=== PATIENT | male | born 2005 | race Caucasian/White ===

== ENCOUNTER 2024-10-01 16:04 | Inpatient (IN) | payer OTHER, SELFPAY ==
[2024-10-01 17:44] VITALS: BMI 36.7
[2024-10-01 18:31] LABS: Add Manual Diff / Slide Review NO; Hematocrit 43.5 % (41-53); Hemoglobin 15.0 g/dL (13.5-17.5); Lymphocytes Absolute Auto 800 /uL (1100-4500); Mean Corpuscular HGB Conc 34.5 % (30-36); Mean Corpuscular Hemoglobin 28.5 PG (26-34); Mean Corpuscular Volume 82.6 fL (80-100); Platelet Count 278 X10^3/uL (150-400)
[2024-10-01 18:50] LABS: Alanine Aminotransferase 23 IU/L (<50); Albumin 4.4 g/dL (3.5-5.0); Albumin Globulin Ratio 1.7 (1.0-2.8); Alkaline Phosphatase 68 U/L (38-126); Blood Urea Nitrogen 18 mg/dL (9-20); Calcium 9.4 mg/dL (8.4-10.2); Carbon Dioxide 25 mmol/L (22-32); Chloride 104 mmol/L (98-107); Estimated Glomerular Filt Rate > 60 mL/min (>60); Globulin 2.6 g/dL (1.7-4.1); Glucose 117 mg/dL (70-99); HEMOLYSIS < 15 (0-50); Potassium 4.4 mmol/L (3.4-5.1); Sodium 139 mmol/L (137-145); Total Protein 7.0 g/dL (6.3-8.2)
[2024-10-01] MEDS: POTASSIUM CHLORIDE 20 MEQ in DEXTROSE 5%-0.45% NS 1,000 ML 125 MEQ IV (19:03)
--- NOTE | 2024-10-01 19:12 | PM.HP.IH.1 ---
History of Present Illness History of Present Illness Chief complaint: abd px, elevated hr, sweating,n/v Narrative: The patient is a 19-year-old gentleman who began with some abdominal pain yesterday evening.escribed the pain as mild, intermittent and sharp. 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 It was still quite sharp and at its peak would cause him to bend in the position. This morning he developed nausea and vomiting. He had up to 9 episodes of emesis till about 7:00 a.m. this morning. Emesis started out as undigested food and subsequently progressed to bilious. He denies a feculent odor. He describes an inguinal hernia surgery at the age of about 4. He has had no intra-abdominal procedures. He has not had a bowel movement or passed any flatus since yesterday. He presented [place] ED and w/u included a CBC with a 17K white count. He had a CT scan done which was interpreted as a high grade obstruction with a possible internal hernia. An NG tube was placed in the emergency department. The tube was never placed on suction. He states the tube has been in for about 3 hours and he has had no more nausea or vomiting. His pain although not completely resolved is greatly reduced in intensity from yesterday evening. He is still has not passed any flatus. [facility] Social History household members: significant other and family Smoking Status: Never smoker alcohol intake: never Meds Home Medications and Allergies Home Medications ?Medication ?Instructions ?Recorded ?Confirmed ?Type No Known Home Medications 10/01/24 10/01/24 History Allergies Allergy/AdvReac Type Severity Reaction Status Date / Time No Known Drug Allergies Allergy Verified 10/01/24 18:01 Review of Systems Review of Systems Narrative: Essentially negative except for that described in the HPI. Exam Narrative Exam Narrative: The patient is a well-developed well-nourished adult male who appears to be in no acute distress. Const General: cooperative, healthy appearing, comfortable, well developed and well groomed HENMT Other: Oral mucosa and tongue appear to be dry Neck Neck: normal visual inspection, full ROM and supple Resp Auscultation: clear to auscultation bilaterally Cardio Rhythm: regular rhythm and other (Without murmurs rubs or gallops) Heart Sounds: gallop GI Palpation: soft Percussion: normal to percussion Auscultation: other (Hypoactive but high pitched bowel sounds without tinkles or rushes.) Back/Spine/Pelvis Back: normal to inspection Skin General: no rashes or lesions noted Neuro General: patient alert, patient awake and patient oriented x3 Extrem General: full ROM Objective Labs 10/01/24 18:22 10/01/24 18:22 Labs: Laboratory Results - last 24 hr 10/01/24 18:22 WBC 9.9 RBC 5.27 Hgb 15.0 Hct 43.5 MCV 82.6 MCH 28.5 MCHC 34.5 RDW 13.7 Plt Count 278 Neut % (Auto) 82.6 H Lymph % (Auto) 8.1 L [place] % (Auto) 8.7 Eos % (Auto) 0.4 L Baso % (Auto) 0.2 Neut # (Auto) 8200 H Lymph # (Auto) 800 L [place] # (Auto) 900 Eos # (Auto) 0 Baso # (Auto) 0 Sodium 139 Potassium 4.4 Chloride 104 Carbon Dioxide 25 BUN 18 Creatinine 0.75 Estimated GFR > 60 BUN/Creatinine Ratio 24.0 H Glucose 117 H Calcium 9.4 Total Bilirubin 1.2 AST 26 ALT 23 Alkaline Phosphatase 68 Total Protein 7.0 Albumin 4.4 Globulin 2.6 Albumin/Globulin Ratio 1.7 Assessment & Plan Assessment & Plan narrative: Small bowel obstruction-etiology is uncertain although there is a consideration for internal hernia. Presently the patient appears to be in no distress whatsoever. He denies any nausea vomiting since about 10:00 a.m. this morning. His white count is reduced from 17,000 down to 9.9. I am unable to review the CT done [facility] ED Plan: 1) since the NG tube has been placed the patient has had no further nausea or vomiting and the NG has never been placed on suction. We will therefore discontinue the NG tube. 2) patient is NPO at this time except for ice chips. 3) I am going to repeat the CT scan of the abdomen and pelvis with IV contrast. 4) patient will be ordered some IV narcotic pain medicine. Time-Based Coding :: [TOTAL MINUTES] spent with patient and on the chart (including review of chart, obtaining history, exam, reviewing outside data, placing orders, documenting exam and treatment plan, and counseling patient) on [DATE]. PROFEE Printed Circuit Board Pcb Draftsman Document charge(s): Yes Charge Codes Initial inpatient/observation care: [id number]
--- NOTE | 2024-10-01 19:31 | DI.CT.S_ITS ---
PROCEDURE: CT ABDOMEN PELVIS W CON INDICATIONS: Abdominal pain TECHNIQUE: After the administration of intravenous contrast, axial sections acquired from the lung bases to the pubic symphysis. Coronal and sagittal reformats were performed. For radiation dose reduction, the following was used: automated exposure control, adjustment of mA and/or kV according to patient size. COMPARISON: None. FINDINGS: Image quality: Diagnostic. Lower Chest: No significant findings. ABDOMEN: Liver: No solid mass. Gallbladder: No radiopaque gallstones or wall thickening. Biliary ducts: No biliary dilation. Pancreas: No ductal dilation. Spleen: Size is within normal limits. Adrenal Glands: No adrenal nodules. Kidneys and Ureters: No hydronephrosis. Contrast is present within the collecting system and bladder likely related to prior contrast administration. Stomach and Bowel: There are dilated fluid-filled loops small bowel greatest dimension measuring 4.4 cm. Transition point appears to be in the right lower quadrant. Peritoneum: Minimal scattered fluid. No free air. Ventral Wall: No significant ventral hernia. Abdominal Nodes: No retroperitoneal or mesenteric adenopathy by size criteria. Vessels: Aorta and inferior vena cava are normal in size. PELVIS: Pelvic Organs: Unremarkable. Bladder: No bladder wall thickening, accounting for underdistention. Pelvic Nodes: No enlarged lymph nodes. Miscellaneous: No inguinal hernias are seen. Bones: No aggressive osseous abnormality. IMPRESSION: Dilated fluid-filled loops of small bowel most consistent with partial small bowel obstruction. Dictated by: Nargis Rios M.D. on 10/01/2024 at 20:18 Approved by: Nargis Rios M.D. on 10/01/2024 at 20:20
--- NOTE | 2024-10-01 19:39 | PC.NURSE ---
Arrived at 1755 A/O NG in place. Denies discomfort at this time. IVF infusing as per MD orders. Pt oriented to room & call system. Call light w/iun reach, pt calls appropriately for needs. Continue w/plan of care
[2024-10-01 19:42] VITALS: BP 124/99; PULSE 100; RESP 19; TEMP 37.2; O2SAT 100
--- NOTE | 2024-10-01 21:23 | DI.RAD.S_ITS ---
PROCEDURE: XR GASTROGRAFIN CHALLENGE COMPARISON: [facility], CT, CT ABDOMEN PELVIS W CON, 10/01/2024, 19:42. INDICATIONS: partial bowel obstruction FINDINGS: Excreted contrast in the urinary bladder. No acute osseous abnormality. There is prominent stool in the colon. Again seen are dilated loops of small bowel mostly in the left abdomen. There is oral contrast in the stomach. IMPRESSION: Findings most consistent with small bowel obstruction. Increased stool in the colon. No significant discrepancy with the overnight preliminary interpretation. Dictated by: Flavio Bryant M.D. on 10/02/2024 at 7:20 Approved by: Flavio Bryant M.D. on 10/02/2024 at 7:23
--- NOTE | 2024-10-01 21:28 | P.PN_ITS ---
Subjective Subjective Date Patient Seen: 10/01/24 Time Patient Seen: 21:30 Interval history: Patient states she has had some mild crampy pain but not as severe as it was last night. The patient denies any nausea or vomiting. Exam Vital Signs (past 8 hours): - 10/01/24 19:42 Temperature 98.9 F Pulse Rate 100 H Respiratory Rate 19 Blood Pressure 124/99 H Pulse Oximetry 100 Oxygen Flow Rate 0 Oxygen Flow Rate 0 Narrative Exam Narrative: Abdomen is mildly distended, soft, with some mild periumbilical tenderness without guarding or rigidity. Bowel sounds are hypoactive. Objective Imaging CT scan - abdomen: My impression: There are dilated, fluid-filled proximal small bowel. There is air in the colon, although the colon is decompressed. Labs 10/01/24 18:22 10/01/24 18:22 Labs: Laboratory Results - last 24 hr 10/01/24 18:22 WBC 9.9 RBC 5.27 Hgb 15.0 Hct 43.5 MCV 82.6 MCH 28.5 MCHC 34.5 RDW 13.7 Plt Count 278 Neut % (Auto) 82.6 H Lymph % (Auto) 8.1 L [place] % (Auto) 8.7 Eos % (Auto) 0.4 L Baso % (Auto) 0.2 Neut # (Auto) 8200 H Lymph # (Auto) 800 L [place] # (Auto) 900 Eos # (Auto) 0 Baso # (Auto) 0 Sodium 139 Potassium 4.4 Chloride 104 Carbon Dioxide 25 BUN 18 Creatinine 0.75 Estimated GFR > 60 BUN/Creatinine Ratio 24.0 H Glucose 117 H Calcium 9.4 Total Bilirubin 1.2 AST 26 ALT 23 Alkaline Phosphatase 68 Total Protein 7.0 Albumin 4.4 Globulin 2.6 Albumin/Globulin Ratio 1.7 PFSH Social History household members: significant other and family Smoking Status: Never smoker alcohol intake: never Assessment & Plan Assessment & Plan narrative: Partial small bowel obstruction-plan a Gastrografin study to further evaluate the patient's obstruction. We will repeat the CBC and a BMP in the morning. Time-Based Coding :: [TOTAL MINUTES] spent with patient and on the chart (including review of chart, obtaining history, exam, reviewing outside data, placing orders, documenting exam and treatment plan, and counseling patient) on [DATE]. PROFEE Feeder Catcher Document charge(s): Yes Charge Codes Subsequent inpatient/observation care: [id number]
[2024-10-01 23:26] VITALS: BP 115/65; PULSE 106; RESP 17; TEMP 36.8; O2SAT 96
[2024-10-01] MEDS: ONDANSETRON 4 MG/2 ML INJ IV (23:40)
[2024-10-02] VITALS (13 sets, daily range): BP systolic 114–157; BP diastolic 72–96; PULSE 90–115; RESP 14–20; TEMP 36.6–37.2; O2SAT 93–98; BMI 35.9
--- NOTE | 2024-10-02 | PATH_ITS ---
[facility] Accession Number: [id number] No. of containers..01 Tissue . 01 Material submitted: . body - TERMINAL ILEUM . 01 Clinical history: . MECKEL'S DIVERTICULUM 7-17 PER LAB OP NOTE, SITE IS TERMINAL ILEUM /RR . 01 Diagnosis: TERMINAL ILEUM, SEGMENTAL RESECTION: Features consistent with Meckel's diverticulum with gastric mucosa. No dysplasia or malignancy. Resection margins are unremarkable. [facility] 10/08/2024 1454 Local . 01 Electronically signed: . Jailene Perez MD, Pathologist NPI- [id number] . 01 Gross description: . Received in formalin with two identifiers and Meckel's diverticulum, is an unoriented segment of small bowel, 7.0 cm in length by 0.3 cm in diameter, with a larger diverticula extending from the center of the specimen measuring 7.1 cm in length by 4.2 cm in diameter. The serosa is violaceous and smooth with a small amount of attached adipose. One staple line is inked blue and the opposite staple line is inked back. The lumen contains brown, semi-solid fecal material. The mucosa is veliz and velvety with a slightly nodular area at the tip of the diverticulum measuring 2.7 x 1.6 cm. No polyps or lesions are identified. The sevilla average 0.3 cm thick with no perforation identified. . Training Technician sections are submitted as follows: A1: Margins en face. A2: Nodular mucosa in the diverticulum. A3: Diverticulum. A4: Full-thickness small bowel. ([id number]) /MRV 10/06/2024 1242 Local . 01 Pathologist provided ICD-10: Q43.0 . 01 CPT . 712662 Specimen Comment: A courtesy copy of this report has been sent to [facility] Pathology Performed at: [address] [facility] [address] [place] [address], [place], [place] [id number] MD David Payton MD Phone: [phone]
[2024-10-02] MEDS: POTASSIUM CHLORIDE 20 MEQ in DEXTROSE 5%-0.45% NS 1,000 ML 125 MEQ IV ×3 (04:57→22:38)
[2024-10-02] MEDS: ONDANSETRON 4 MG/2 ML INJ IV ×3 (05:00→17:17)
--- NOTE | 2024-10-02 09:06 | DI.RAD.S_ITS ---
PROCEDURE: XR ACUTE ABDOMEN SERIES INDICATIONS: bowel obstruction TECHNIQUE: One view chest and two views of the abdomen were acquired. COMPARISON: [facility], CR, XR GASTROGRAFIN CHALLENGE, 10/02/2024, 2:56. [facility], CT, CT ABDOMEN PELVIS W CON, 10/01/2024, 19:42. FINDINGS: Surgical changes and devices: None. Chest: Lungs are clear. Heart size is normal. No pleural effusions. No pneumoperitoneum. Abdomen: Persistent dilated loops of small bowel. Air-fluid levels. No suspicious calcifications. Visualized solid organ contours appear normal. Excreted contrast in the urinary bladder. Bones: No suspicious bony lesions. IMPRESSION: Persistent small bowel obstruction. No acute cardiopulmonary abnormality. Dictated by: Flavio Bryant M.D. on 10/02/2024 at 11:58 Approved by: Flavio Bryant M.D. on 10/02/2024 at 12:01
--- NOTE | 2024-10-02 09:08 | PM.PN.IH.1 ---
Subjective Subjective Date Patient Seen: 10/02/24 Time Patient Seen: 09:08 Interval history: Patient is still with crampy abdominal pain. Denies passing any flatus. Had 2 small emesis last night. Exam Vital Signs (past 8 hours): - 10/02/24 03:12 Temperature 98.3 F Pulse Rate 90 Respiratory Rate 17 Blood Pressure 124/86 Pulse Oximetry 96 Oxygen Flow Rate 0 Oxygen Delivery Method Room Air Oxygen Flow Rate 0 Const General: cooperative and in distress Neck Neck: full ROM and supple Resp Auscultation: clear to auscultation bilaterally Cardio Rate: regular rate Rhythm: regular rhythm (No murmurs rubs or gallops) GI Other: Patient looks more distended this morning, firm, nontender with hypoactive high-pitched bowel sounds. There is some tympany to percussion Skin General: no rashes or lesions noted Neuro Other: Grossly intact Extrem General: full ROM Objective Labs 10/01/24 18:22 10/01/24 18:22 Labs: Laboratory Results - last 24 hr 10/01/24 18:22 WBC 9.9 RBC 5.27 Hgb 15.0 Hct 43.5 MCV 82.6 MCH 28.5 MCHC 34.5 RDW 13.7 Plt Count 278 Neut % (Auto) 82.6 H Lymph % (Auto) 8.1 L [place] % (Auto) 8.7 Eos % (Auto) 0.4 L Baso % (Auto) 0.2 Neut # (Auto) 8200 H Lymph # (Auto) 800 L [place] # (Auto) 900 Eos # (Auto) 0 Baso # (Auto) 0 Sodium 139 Potassium 4.4 Chloride 104 Carbon Dioxide 25 BUN 18 Creatinine 0.75 Estimated GFR > 60 BUN/Creatinine Ratio 24.0 H Glucose 117 H Calcium 9.4 Total Bilirubin 1.2 AST 26 ALT 23 Alkaline Phosphatase 68 Total Protein 7.0 Albumin 4.4 Globulin 2.6 Albumin/Globulin Ratio 1.7 PFSH Social History household members: significant other and family Smoking Status: Never smoker alcohol intake: never Assessment & Plan Assessment & Plan narrative: Partial small bowel [id number] done 4 hours after injection of Gastrografin, shows contrast in the stomach and I would not advanced. Labs are still pending from this morning. I will repeat a 3 way abdomen this morning and if there is no movement of the contrast, I will proceed with exploratory laparotomy. Time-Based Coding :: [TOTAL MINUTES] spent with patient and on the chart (including review of chart, obtaining history, exam, reviewing outside data, placing orders, documenting exam and treatment plan, and counseling patient) on [DATE]. PROFEE Petrography Teacher Document charge(s): Yes Charge Codes Subsequent inpatient/observation care: [id number]
--- NOTE | 2024-10-02 11:25 | CM.DANOTE ---
Patient is a 19 yo male who was admitted OBS Status on 10/01/24 for SBO and possible hernia. Pt has [employer] for insurance and no PCP. EMR was reviewed. Per Surgeon, pt with intractable n/v and admitted for SBO and attempting conservative tx with NGT and NPO. NGT discontinued and pt remains NPO with IV fluids and making slow progress and to have further imaging today to determine if surgical intervention needed. SW met bedside with pt and mother and explained role and they confirm they live at home in [place] and pt is very active and independent and healthy at baseline and works and drives. Pt denies any hx of hospitalization and does not use DME to ambulate. 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 Mother confirms that she can transport pt at d/c and assist as needed. Pt confirms he has no PCP and discussed possible options of [facility] or [facility] and pt agreeable with referral to [facility], no preference on male or female provider, to establish with PCP for outpt f/u after discharge. Pt and mother preference is to d/c home when stable and do not anticipate any further needs besides PCP at this time. SW sent msg to [facility] group requesting pt to be scheduled with PCP establish care appointment after discharge. Plan: SW to follow for further imaging to determine conservative tx vs surgical intervention and then advancing diet. SHRADDHA Haddad Discharge Planning/Care Management CM Discharge Assessment Start: 10/01/24 17:25 Freq: Status: Active Protocol: Document 10/02/24 11:23 BF (Rec: 10/02/24 11:25 BF [id number]) Discharge Planning Assessment Assigned Discharge SHRADDHA James Quality Control Operator DPOA/Assigned informally mother Designee Name Advance Directives? No Advance Directives No on File History Provided By Patient,Medical Record Has Patient been No admitted in last 30 days? Prior Living House Arrangements Household Members significant other,family Type of Drives own vehicle transporation used prior to admit Independent with ADL Yes 's Is patient alert and Yes oriented? Caregiver for No Another Barriers to No Discharge Discharge Plan Home Transportation Family can transport at d/c Arrangement Referrals Initiated None needed Whiteboard Updated Yes in Patient Room with name and ext. # of Electronic Drafter Review Status In Process Please Provide Date 10/02/24 Initial DC Assessment Was Performed Next Review Type Continued Stay Review Document 10/02/24 11:25 BF (Rec: 10/02/24 11:25 BF [id number]) Discharge Planning Assessment Assigned Discharge SHRADDHA James Quality Control Operator DPOA/Assigned informally mother Designee Name Advance Directives? No Advance Directives No on File History Provided By Patient,Medical Record Has Patient been No admitted in last 30 days? Prior Living House Arrangements Household Members significant other,family Type of Drives own vehicle transporation used prior to admit Independent with ADL Yes 's Is patient alert and Yes oriented? Caregiver for No Another Barriers to No Discharge Discharge Plan Home Transportation Family can transport at d/c Arrangement Referrals Initiated None needed Whiteboard Updated Yes in Patient Room with name and ext. # of Electronic Drafter Review Status In Process Please Provide Date 10/02/24 Initial DC Assessment Was Performed Next Review Type Continued Stay Review
[2024-10-02 13:49] LABS: Add Manual Diff / Slide Review NO; Hematocrit 44.9 % (41-53); Hemoglobin 15.7 g/dL (13.5-17.5); Lymphocytes Absolute Auto 1400 /uL (1100-4500); Mean Corpuscular HGB Conc 34.9 % (30-36); Mean Corpuscular Hemoglobin 28.8 PG (26-34); Mean Corpuscular Volume 82.6 fL (80-100); Platelet Count 294 X10^3/uL (150-400)
[2024-10-02 14:11] LABS: Blood Urea Nitrogen 13 mg/dL (9-20); Calcium 9.2 mg/dL (8.4-10.2); Carbon Dioxide 29 mmol/L (22-32); Chloride 101 mmol/L (98-107); Estimated Glomerular Filt Rate > 60 mL/min (>60); Glucose 118 mg/dL (70-99); HEMOLYSIS 37 (0-50); Potassium 4.6 mmol/L (3.4-5.1); Sodium 136 mmol/L (137-145)
--- NOTE | 2024-10-02 17:55 | PM.PN.IH.1 ---
Subjective Subjective Date Patient Seen: 10/02/24 Time Patient Seen: 06:18 Interval history: Patient hasnt pass gas and continues to have crampy abdominal pain. He has had 1 episode of emesis after a dose of Dilaudid. Exam Vital Signs (past 8 hours): - 10/02/24 12:00 10/02/24 16:00 Temperature 99.0 F 97.9 F Pulse Rate 98 H 102 H Respiratory Rate 16 16 Blood Pressure 114/72 124/72 Pulse Oximetry 98 98 Oxygen Flow Rate 0 0 Oxygen Delivery Method Room Air Oxygen Flow Rate 0 Narrative Exam Narrative: Patient looks like he is uncomfortable Lungs are clear to auscultation bilaterally Cardiac reveals a regular rate and rhythm without murmurs rubs or gallops Abdomen is soft, distended, nontender with high-pitched bowel sounds Objective Labs 10/02/24 13:40 10/02/24 13:40 Labs: Laboratory Results - last 24 hr 10/01/24 10/02/24 18:22 13:40 WBC 9.9 6.6 RBC 5.27 5.44 Hgb 15.0 15.7 Hct 43.5 44.9 MCV 82.6 82.6 MCH 28.5 28.8 MCHC 34.5 34.9 RDW 13.7 13.9 Plt Count 278 294 Neut % (Auto) 82.6 H 61.7 D Lymph % (Auto) 8.1 L 21.8 L [place] % (Auto) 8.7 15.1 H Eos % (Auto) 0.4 L 1.1 L Baso % (Auto) 0.2 0.3 Neut # (Auto) 8200 H 4000 Lymph # (Auto) 800 L 1400 [place] # (Auto) 900 1000 H Eos # (Auto) 0 100 Baso # (Auto) 0 0 Sodium 139 136 L Potassium 4.4 4.6 Chloride 104 101 Carbon Dioxide 25 29 BUN 18 13 Creatinine 0.75 0.88 Estimated GFR > 60 > 60 BUN/Creatinine Ratio 24.0 H 14.8 Glucose 117 H 118 H Calcium 9.4 9.2 Total Bilirubin 1.2 AST 26 ALT 23 Alkaline Phosphatase 68 Total Protein 7.0 Albumin 4.4 Globulin 2.6 Albumin/Globulin Ratio 1.7 PFSH Social History household members: significant other and family Smoking Status: Never smoker alcohol intake: never Assessment & Plan Assessment and plan (1) Small bowel obstruction: Status: Acute Plan The patient has an opened up despite Gastrografin study. Plan exploratory laparotomy with possible bowel resection. Indications, planned procedure, and inherent risks were explained to the patient. He appears to understand and agrees to proceed as outlined. Time-Based Coding :: [TOTAL MINUTES] spent with patient and on the chart (including review of chart, obtaining history, exam, reviewing outside data, placing orders, documenting exam and treatment plan, and counseling patient) on [DATE]. PROFEE College Service Officer Document charge(s): Yes Charge Codes Subsequent inpatient/observation care: [id number]
--- NOTE | 2024-10-02 18:30 | SUR.PREOP ---
Bedside handoff report from BRUCE Kirkpatrick. Pt identifiers confirmed. Carlie Grissom's phone number in chart for Dr. Burgess. Silver ring left in room 208 w/ carlie. LAC 20g IV infusing D5 1/2 NS w K. Paused at 1830. Pt transferred to pre-op via hospital bed. Side rails up, bed low.
[2024-10-02] MEDS: LACTATED RINGERS 1,000 ML 42 ML IV (19:03)
[2024-10-02] MEDS: PIPERACILLIN/TAZO 3.375 GM in SODIUM CHLORIDE 0.9% 100 ML IV (19:29)
--- NOTE | 2024-10-02 19:48 | SUR.OPER ---
Supine on padded OR bed, head on pillow, arms secured on padded arm boards at <90 degrees abduction, legs uncrossed, safety belt at thigh, tape over blanket over lower legs.
[2024-10-02] MEDS: ACETAMINOPHEN IV 1,000 MG/100 ML VIAL 400 MG IV (19:50)
[2024-10-02] MEDS: BUPIVACAINE 0.25% W/ EPI 30 ML VIAL 60 ML INJ (20:10)
--- NOTE | 2024-10-02 21:53 | PM.OP.1 ---
Operative Date/Time/Diagnoses Date of procedure: 10/02/24 Time of procedure: 19:45 Pre-op diagnosis: Small bowel obstruction Post-op diagnosis: other Procedure & Clinicians Procedure: Exploratory laparotomy with small-bowel resection. Same procedure(s) as scheduled: Yes Indications: Patient is a 19-year-old gentleman who presented last night with crampy abdominal pain and some nausea and vomiting. Workup revealed the patient have a partial small bowel obstruction. Attempted a Gastrografin study failed and the patient continued to have crampy abdominal pain and no flatus and the decision was made to perform an exploratory laparotomy. Surgeon: ED* *Temp Click Yes if Unassisted: Yes Anesthesia Type: General Operative Notes Findings: The patient had significant small bowel distention in the proximal bowel down to the area of the terminal ileum which was decompressed. At the site of the terminal ileum the patient had a single adhesion that went from the tip of a rather large Meckel's diverticulum to the mesentery of another loop of bowel. Patient had a large amount of serous ascites. Specimen(s): other (Patient a section of small bowel with the Meckel's diverticulum sent.) Applied: none Estimated Blood Loss (mL): 20 Procedure in detail: After appropriate patient identification, the patient was placed on the procedure table in a supine position. Upon achievement adequate general anesthesia, the abdomen was prepped with ChloraPrep and draped in a sterile manner. After completion of the time-out, a periumbilical incision was fashioned using a 10 blade knife. The incision was deepened through dermis and subcutaneous tissue to the linea Alba. The linea alba and the peritoneum were opened under direct vision throughout the entire incision. Patient had a copious amount of ascites which was aspirated. The patient was then eviscerated and the small bowel was followed from ligament of Treitz to the terminal ileum where we found a single adhesion arising from a Meckel's diverticulum on to another loop of bowel. This is the point of obstruction and the terminal ileum was decompressed after this point. This adhesion was lysed using Metzenbaum scissors. The bowel was then run from ligament of Treitz down to ileocecal valve and there was no cyanotic or necrotic bowel. The patient had a rather large Meckel's diverticulum. The decision was made to excise this. Both proximal and distal to the Meckel's diverticulum the mesentery was dissected from the small bowel using a tonsil clamp. FRANNY 55 staplers were passed both proximally and distally and fired. The mesentery was then taken down sequentially using the LigaSure. The bowel was then placed side by side and anchored into place using 3-0 silk sutures. A posterior row of interrupted Lemberts was fashioned using 3-0 silk suture. Moist laps were placed on either side of the proposed anastomosis. Enterotomies were fashioned both in the proximal bowel and the distal bowel using Bovie electrocautery. There was a significant amount of drainage of small bowel effluent which was caught on the previously placed moistened laps. The bowel segments were aspirated using pool suckers. GI 55 was placed through both enterotomies and fired. The resulting enterotomy was then closed using Allis clamps and a TA 30? was passed underneath the Allis clamps and fired. Attention was then directed to the mesentery and while attempting to close the mesentery with a 4-0 on dyed Monocryl, there appeared to be a leak in the suture line. The staple line was then inverted using interrupted Lemberts of 3-0 silk suture. The site was carefully inspected no further leaks were identified. The mesentery was then closed using a 4-0 dyed Monocryl and fashion. The abdomen is then copiously irrigated with sterile saline. The small bowel was returned to its normal anatomic position. The linea alba was reapproximated using 1. PDS in a simple running fashion. The skin on either side of the incision was anesthetized using 0.25% Marcaine with epinephrine. Gatzke were then placed to reapproximate the skin. A sterile dressing was placed and the procedure was terminated. The patient was transferred to the recovery room in good condition having sustained approximately 20 cc blood loss. Complications: none Post-operative Condition: stable Disposition: PACU
[2024-10-03] VITALS (16 sets, daily range): BP systolic 106–147; BP diastolic 57–91; PULSE 101–139; RESP 16–25; TEMP 36.7–37.5; O2SAT 93–99
[2024-10-03] MEDS: KETOROLAC 30 MG/ML VIAL 15 MG IV ×4 (02:16→19:48)
[2024-10-03] MEDS: ACETAMINOPHEN IV 1,000 MG/100 ML VIAL 400 MG IV ×4 (03:45→19:57)
[2024-10-03 04:36] LABS: Add Manual Diff / Slide Review NO; Hematocrit 43.0 % (41-53); Hemoglobin 15.1 g/dL (13.5-17.5); Lymphocytes Absolute Auto 400 /uL (1100-4500); Mean Corpuscular HGB Conc 35.1 % (30-36); Mean Corpuscular Hemoglobin 29.1 PG (26-34); Mean Corpuscular Volume 82.8 fL (80-100); Platelet Count 273 X10^3/uL (150-400)
--- NOTE | 2024-10-03 04:41 | PC.NURSE ---
Addendum entered by Noa Thompson R.N. 10/03/24 04:49: 10/02/24 22:30- Pt back to ACU from PACU, Original Note: 04:00-Pt sustaining elevated HR between 110's-120's. Notified Dr. Burgess and he stated keep an eye on it.
[2024-10-03 04:47] LABS: Blood Urea Nitrogen 13 mg/dL (9-20); Calcium 8.7 mg/dL (8.4-10.2); Carbon Dioxide 23 mmol/L (22-32); Chloride 102 mmol/L (98-107); Estimated Glomerular Filt Rate > 60 mL/min (>60); Glucose 151 mg/dL (70-99); HEMOLYSIS < 15 (0-50); Potassium 4.8 mmol/L (3.4-5.1); Sodium 132 mmol/L (137-145)
[2024-10-03] MEDS: POTASSIUM CHLORIDE 20 MEQ in DEXTROSE 5%-0.45% NS 1,000 ML 125 MEQ IV (07:01)
[2024-10-03] MEDS: HYDROMORPHONE 2 MG INJ IV ×7 (07:02→21:51)
--- NOTE | 2024-10-03 09:25 | EKG_ITS ---
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
[2024-10-03] MEDS: SODIUM CHLORIDE 0.9% 1,000 ML 1000 ML IV ×2 (10:10→17:45)
--- NOTE | 2024-10-03 10:22 | P.PN_ITS ---
Subjective Subjective Date Patient Seen: 10/03/24 Time Patient Seen: 10:22 Interval history: The patient is 1st day postop from a bicoronal laparotomy with small-bowel resection secondary to a small-bowel obstruction caused by a Meckel's diverticulum. Presently we are having some difficulty with pain management. His dosing was increased this morning with improvement in his pain presently. Patient stated he urinated approximately 3 times last night. He denies any nausea or vomiting. Exam Vital Signs (past 8 hours): - 10/03/24 03:27 10/03/24 06:40 10/03/24 09:03 Temperature 98.7 F 99.5 F 98.2 F Pulse Rate 117 H 139 H 136 H Respiratory Rate 19 18 22 Blood Pressure 119/73 134/81 118/90 Pulse Oximetry 96 96 94 Oxygen Flow Rate 0 0 0 Oxygen Delivery Method Room Air Oxygen Flow Rate 0 Narrative Exam Narrative: Lungs are clear to auscultation bilaterally with poor inspiratory effort. Cardiac reveals a rapid rate and regular rhythm Abdomen is soft but diffusely tender without guarding or rigidity. Bowel sounds are hypoactive and distant There is some serosanguineous drainage on the dressing this morning. Objective ECG Impression: The EKG shows sinus tach Labs 10/02/24 13:40 10/02/24 13:40 Labs: Laboratory Results - last 24 hr 10/02/24 10/02/24 04:11 13:40 WBC 2.8 L D 6.6 D RBC 5.19 5.44 Hgb 15.1 15.7 Hct 43.0 44.9 MCV 82.8 82.6 MCH 29.1 28.8 MCHC 35.1 34.9 RDW 13.5 13.9 Plt Count 273 294 Neut % (Auto) 75.2 H 61.7 Lymph % (Auto) 13.5 L 21.8 L [place] % (Auto) 10.9 15.1 H Eos % (Auto) 0.2 L 1.1 L Baso % (Auto) 0.2 0.3 Neut # (Auto) 2100 4000 Lymph # (Auto) 400 L 1400 [place] # (Auto) 300 1000 H Eos # (Auto) 0 100 Baso # (Auto) 0 0 Sodium 132 L 136 L Potassium 4.8 4.6 Chloride 102 101 Carbon Dioxide 23 29 BUN 13 13 Creatinine 0.89 0.88 Estimated GFR > 60 > 60 BUN/Creatinine Ratio 14.6 14.8 Glucose 151 H 118 H Calcium 8.7 9.2 PFSH Social History household members: significant other and family Smoking Status: Never smoker alcohol intake: never Assessment & Plan Assessment and plan (1) Meckel's diverticulum: Status: Acute (2) Small bowel obstruction: Status: Acute (3) Sinus tachycardia: Status: Acute Plan Given the sinus tachycardia we made some adjustments on his pain management. We will also give him a 1 L bolus despite the fact that he had approximately 45 cc/hour urine throughout the night. We will ambulate the patient today and encouraged vigorous pulmonary toilet. Time-Based Coding :: [TOTAL MINUTES] spent with patient and on the chart (including review of chart, obtaining history, exam, reviewing outside data, placing orders, documenting exam and treatment plan, and counseling patient) on [DATE]. PROFEE Director Executive Communications Document charge(s): Yes
[2024-10-03 10:50] LABS: Add Manual Diff / Slide Review NO; Hematocrit 41.1 % (41-53); Hemoglobin 14.3 g/dL (13.5-17.5); Lymphocytes Absolute Auto 400 /uL (1100-4500); Mean Corpuscular HGB Conc 34.8 % (30-36); Mean Corpuscular Hemoglobin 28.8 PG (26-34); Mean Corpuscular Volume 82.7 fL (80-100); Platelet Count 259 X10^3/uL (150-400)
[2024-10-03 10:58] LABS: Blood Urea Nitrogen 17 mg/dL (9-20); Calcium 8.1 mg/dL (8.4-10.2); Carbon Dioxide 26 mmol/L (22-32); Chloride 100 mmol/L (98-107); Estimated Glomerular Filt Rate > 60 mL/min (>60); Glucose 142 mg/dL (70-99); HEMOLYSIS < 15 (0-50); Potassium 5.0 mmol/L (3.4-5.1); Sodium 132 mmol/L (137-145)
[2024-10-03] MEDS: SODIUM CHLORIDE 0.9% 1,000 ML 125 ML IV (11:43)
--- NOTE | 2024-10-03 13:16 | CM.DPC ---
DCP COnt: Per Surgeon, pt's conservative tx was not adequate and pt taken to OR yesterday evening 10/02 for Ex Lap and tolerated procedure well but some pain management issues and tachy and not yet stable for discharge today. Will encourage ambulation and slowly advance diet. SHRADDHA Haddad
--- NOTE | 2024-10-03 13:47 | PC.NURSE ---
Addendum entered by Lian Hudson R.N. 10/03/24 18:56: Dr. Burgess here new orders rec'd, started 2nd bolus, medicated pt with 2mg dilaudid ivp, pt stood at bs and walked in place o2sats of ra 91, HR increase to 150's. spoke with charge and believe pt will have closer watch in ICU overnight. transfered to room 230. Original Note: this Am 0830 Pt appears distressed HR tachy up into the 160's, shallow breaths and clammy, complains of abd pain. tele placed and EKG done, medicated with Dilaudid 2mg IVP, tylenol IV, toradol IVP, placed o2 2lnc sats 91% increased to 96% DR. Burgess notified of pt changes and here at 0950 bedside to see pt, 1 liter bolus normal saline given. then changed rate and solution. 1400 pt resting heartrate down to 120' nst. taking ice chips, voiding without difficulty. 1400
[2024-10-03 16:26] LABS: Blood Urea Nitrogen 20 mg/dL (9-20); Calcium 8.2 mg/dL (8.4-10.2); Carbon Dioxide 23 mmol/L (22-32); Chloride 101 mmol/L (98-107); Estimated Glomerular Filt Rate > 60 mL/min (>60); Glucose 124 mg/dL (70-99); HEMOLYSIS < 15 (0-50); Potassium 4.9 mmol/L (3.4-5.1); Sodium 132 mmol/L (137-145)
--- NOTE | 2024-10-03 17:05 | P.PN_ITS ---
Subjective Subjective Date Patient Seen: 10/03/24 Time Patient Seen: 15:03 Exam Vital Signs (past 8 hours): - 10/03/24 12:44 Temperature 98.4 F Pulse Rate 126 H Respiratory Rate 20 Blood Pressure 106/57 L Pulse Oximetry 99 Oxygen Flow Rate 1 Oxygen Delivery Method Nasal Cannula Oxygen Flow Rate 1 Narrative Exam Narrative: Patient is still tachycardic at 1:26 a.m.. He urinated once at about 1:00 p.m. proximally a 350 cc. Objective Labs 10/03/24 10:40 10/03/24 15:58 Labs: Laboratory Results - last 24 hr 10/02/24 10/02/24 10/03/24 04:11 13:40 10:40 WBC 2.8 L D 6.6 D 3.2 L D RBC 5.19 4.97 Hgb 15.1 14.3 Hct 43.0 41.1 MCV 82.8 82.6 82.7 MCH 29.1 28.8 MCHC 35.1 34.9 34.8 RDW 13.5 13.7 Plt Count 273 259 Neut % (Auto) 75.2 H 61.7 72.3 Lymph % (Auto) 13.5 L 21.8 L 11.3 L [place] % (Auto) 10.9 15.3 H Eos % (Auto) 0.2 L 0.7 L Baso % (Auto) 0.2 0.4 Neut # (Auto) 2100 2300 Lymph # (Auto) 400 L 400 L [place] # (Auto) 300 500 Eos # (Auto) 0 0 Baso # (Auto) 0 0 Sodium 132 L 136 L 132 L Potassium 4.8 4.6 5.0 Chloride 102 100 Carbon Dioxide 23 26 BUN 13 17 Creatinine 0.89 1.27 H Estimated GFR > 60 > 60 BUN/Creatinine Ratio 14.6 13.4 Glucose 151 H 118 H 142 H Calcium 8.7 8.1 L 10/03/24 15:58 WBC RBC Hgb Hct MCV MCH MCHC RDW Plt Count Neut % (Auto) Lymph % (Auto) [place] % (Auto) Eos % (Auto) Baso % (Auto) Neut # (Auto) Lymph # (Auto) [place] # (Auto) Eos # (Auto) Baso # (Auto) Sodium 132 L Potassium 4.9 Chloride 101 Carbon Dioxide 23 BUN 20 Creatinine 1.21 Estimated GFR > 60 BUN/Creatinine Ratio 16.5 Glucose 124 H Calcium 8.2 L PFSH Social History household members: significant other and family Smoking Status: Never smoker alcohol intake: never Assessment & Plan Assessment and plan (1) Sinus tachycardia: Status: Acute (2) Meckel's diverticulum: Status: Acute (3) Small bowel obstruction: Status: Acute (4) Hyperkalemia: Status: Acute Plan We will continue to run his IV fluids at 150 cc/hour and we will give him another normal saline bolus. We will repeat the CBC and BNP tomorrow morning. Time-Based Coding :: [TOTAL MINUTES] spent with patient and on the chart (including review of chart, obtaining history, exam, reviewing outside data, placing orders, documenting exam and treatment plan, and counseling patient) on [DATE]. PROFEE Director Of Culture Document charge(s): Yes
[2024-10-03] MEDS: SODIUM CHLORIDE 0.9% 1,000 ML 150 ML IV (19:50)
[2024-10-03 20:10] LABS: MRSA (Nasal) PCR NOT DETECTED (Not Detect)
[2024-10-04] VITALS (51 sets, daily range): BP systolic 107–177; BP diastolic 63–91; PULSE 116–143; RESP 11–30; TEMP 36.6–37.2; O2SAT 91–100
[2024-10-04] MEDS: HYDROMORPHONE 2 MG INJ IV ×6 (00:08→09:56)
[2024-10-04] MEDS: ONDANSETRON 4 MG/2 ML INJ IV ×5 (00:14→22:44)
[2024-10-04] MEDS: KETOROLAC 30 MG/ML VIAL 15 MG IV ×4 (01:54→20:05)
[2024-10-04] MEDS: ACETAMINOPHEN IV 1,000 MG/100 ML VIAL 400 MG IV ×3 (04:01→20:06)
--- NOTE | 2024-10-04 06:31 | PC.NURSE ---
Addendum entered by Adrianna Medina R.N. 10/04/24 06:58: 0630-Patient had another 300ml thin dark brown emesis, no odor. Original Note: Geology Scientist Summary-Patient drowsy, oriented x3. 7/10 abdominal pain controlled with 2mg IV Dilaudid Q2h prn. IV Zofran given for nausea, had 100ml dark green/brown emesis at 0500. Unable to void overnight until 0500, voided 500ml tea colored urine. Was bladder scanned at 2230, only had 75ml at that time. Dr. Burgess called, went to voice mail, ML to phone ICU. ST 120-140s with activity. Afebrile. Placed on 2L NC, desats <90% when asleep. PAIMIUT elevated. Midline drsg D/I with moderate drainage. Bowel sounds very hypoactive. S.O. in room overnight.
[2024-10-04 08:46] LABS: Blood Urea Nitrogen 26 mg/dL (9-20); Calcium 8.7 mg/dL (8.4-10.2); Carbon Dioxide 21 mmol/L (22-32); Chloride 100 mmol/L (98-107); Estimated Glomerular Filt Rate > 60 mL/min (>60); Glucose 141 mg/dL (70-99); HEMOLYSIS < 15 (0-50); Potassium 4.5 mmol/L (3.4-5.1); Sodium 132 mmol/L (137-145)
[2024-10-04] MEDS: SODIUM CHLORIDE 0.9% 1,000 ML 150 ML IV ×2 (08:50→14:35)
[2024-10-04 08:54] LABS: Hematocrit 40.7 % (41-53); Hemoglobin 14.0 g/dL (13.5-17.5); Mean Corpuscular HGB Conc 34.3 % (30-36); Mean Corpuscular Hemoglobin 28.3 PG (26-34); Mean Corpuscular Volume 82.4 fL (80-100); Platelet Count 265 X10^3/uL (150-400)
[2024-10-04 08:58] LABS: Add Manual Diff / Slide Review YES
[2024-10-04 09:29] LABS: Band Neutrophils Percent 41.0 % (3-7); Eosinophils Percent Manual 1.0 % (2-4); Lymphocytes Percent Manual 19.0 % (25-45); Metamyelocytes Percent 1.0 % (-0); Monocytes Percent Manual 24.0 % (2-11); Neutrophils Absolute Manual 2585 /uL (3000-5900); Segmented Neutrophils Percent 14.0 % (38-70); Total Cells Counted 100
[2024-10-04 09:34] LABS: RBC Morphology Normal Morphology
[2024-10-04 09:35] LABS: Toxic Granulation Present; Toxic Vacuolation Present
--- NOTE | 2024-10-04 09:36 | DI.CT.S_ITS ---
PROCEDURE: CT ANGIO CHEST PE PROTOCOL INDICATIONS: Tachycardia post-op TECHNIQUE: After the administration of intravenous contrast, 2 mm thick sections acquired from the pulmonary apices to the posterior costophrenic angles. 3-dimensional maximum intensity projection (MIP) coronal and sagittal reformats were then acquired through the thorax. For radiation dose reduction, the following was used: automated exposure control, adjustment of mA and/or kV according to patient size. COMPARISON: [facility], CT, CT ABDOMEN PELVIS W CON, 10/01/2024, 19:42. FINDINGS: Image quality: Mild respiratory motion. Poor opacification of the pulmonary arteries. Some diagnostic information is obtained. Pulmonary arteries: There is suboptimal opacification of the pulmonary arteries on initial scanning and repeat scanning was performed, which also demonstrates suboptimal contrast opacification likely related to patient respiration. Within these limits, no large central pulmonary embolus is seen Lower Neck: No enlarged lymph nodes. Thyroid: No thyroid nodules which require sonographic follow up, per consensus guidelines. Axillae: No enlarged lymph nodes. Chest Wall: Unremarkable. Bones: Unremarkable. Lungs and Pleura: Trace bilateral pleural effusions. No pneumothorax. Subsegmental atelectasis is seen in the lungs bilaterally.1 no definite dense airspace consolidation. o pneumothorax or pleural effusions. No consolidation or suspicious nodules. Heart: Heart size is normal. No pericardial effusion. Thoracic Vessels: No aortic aneurysm. Mediastinum and Keren: No enlarged lymph nodes. Esophagus: Esophagus is filled with fluid. There is mild distal esophageal wall thickening that may indicate esophagitis. No significant hiatal hernia. Upper Abdomen: Distended stomach. Multiple distended small bowel loops are seen in the upper abdomen. Small volume of fluid is seen in the upper abdomen. IMPRESSION: 1. Poor opacification of the pulmonary arteries despite repeat scanning. Within these limits, no large central pulmonary embolus is seen although more peripheral emboli could be missed. 2. Small bilateral pleural effusions with bibasilar atelectasis. 3. Fluid-filled esophagus with mild circumferential esophageal wall thickening that could indicate esophagitis. 4. Distended fluid-filled appearance of the stomach and included small bowel compatible with ileus or small-bowel obstruction. 5. Small volume of upper abdominal ascites. Approved by: Cody Corral M.D. on 10/04/2024 at 10:58
--- NOTE | 2024-10-04 09:37 | PM.PN.IH.1 ---
Subjective Subjective Date Patient Seen: 10/04/24 Time Patient Seen: 09:37 Interval history: POD#2 Patient continues to complain of incisional and abdominal pain. Patient is nauseated and has vomited x1. He has not passed any flatus. Exam Vital Signs (past 8 hours): - 10/04/24 02:00 10/04/24 02:07 10/04/24 02:07 Pulse Rate 131 H 125 H Respiratory Rate 28 H 24 Blood Pressure 146/91 H Pulse Oximetry 91 93 Oxygen Delivery Method 10/04/24 02:30 10/04/24 03:00 10/04/24 03:00 Pulse Rate 123 H 122 H Respiratory Rate 19 20 Blood Pressure 151/89 H Pulse Oximetry 95 96 Oxygen Delivery Method 10/04/24 03:30 10/04/24 04:00 10/04/24 04:00 Pulse Rate 123 H 124 H Respiratory Rate 23 24 Blood Pressure 155/90 H Pulse Oximetry 96 96 Oxygen Delivery Method 10/04/24 04:30 10/04/24 05:00 10/04/24 05:00 Pulse Rate 124 H 125 H Respiratory Rate 21 20 Blood Pressure 177/78 H Pulse Oximetry 95 94 Oxygen Delivery Method 10/04/24 05:30 10/04/24 06:00 10/04/24 06:00 Pulse Rate 129 H 120 H Respiratory Rate 22 15 Blood Pressure 142/86 H Pulse Oximetry 94 95 Oxygen Delivery Method 10/04/24 06:30 10/04/24 07:00 10/04/24 07:00 Pulse Rate 125 H 133 H Respiratory Rate 11 L 22 Blood Pressure Pulse Oximetry 94 95 Oxygen Delivery Method Room Air 10/04/24 07:00 10/04/24 07:30 10/04/24 08:00 Pulse Rate 127 H 139 H Respiratory Rate 23 26 H Blood Pressure 139/87 Pulse Oximetry 94 94 Oxygen Delivery Method 10/04/24 08:30 10/04/24 09:00 Pulse Rate 124 H 123 H Respiratory Rate 20 21 Blood Pressure 155/76 H Pulse Oximetry 94 96 Oxygen Delivery Method Oxygen Delivery Method Room Air Oxygen Flow Rate 0 Narrative Exam Narrative: Lungs are clear to auscultation bilaterally Cardiac reveals a rapid rate regular rhythm Abdomen is distended, soft, nontender, with absent bowel sounds. There are stable serosanguineous drainage on the dressing. There is no lower extremity edema. Objective Labs 10/04/24 08:25 10/04/24 08:25 Labs: Laboratory Results - last 24 hr 10/03/24 10/03/24 10/03/24 10:40 15:58 18:35 WBC 3.2 L D RBC 4.97 Hgb 14.3 Hct 41.1 MCV 82.7 MCH 28.8 MCHC 34.8 RDW 13.7 Plt Count 259 Neut % (Auto) 72.3 Lymph % (Auto) 11.3 L [place] % (Auto) 15.3 H Eos % (Auto) 0.7 L Baso % (Auto) 0.4 Neut # (Auto) 2300 Lymph # (Auto) 400 L [place] # (Auto) 500 Eos # (Auto) 0 Baso # (Auto) 0 Sodium 132 L 132 L Potassium 5.0 4.9 Chloride 100 101 Carbon Dioxide 26 23 BUN 17 20 Creatinine 1.27 H 1.21 Estimated GFR > 60 > 60 BUN/Creatinine Ratio 13.4 16.5 Glucose 142 H 124 H Calcium 8.1 L 8.2 L Nasal Screen MRSA (PCR) Not detected 10/04/24 08:25 WBC 4.7 RBC 4.95 Hgb 14.0 Hct 40.7 L MCV 82.4 MCH 28.3 MCHC 34.3 RDW 13.5 Plt Count 265 Neut % (Auto) Not Reportable Lymph % (Auto) Not Reportable [place] % (Auto) Not Reportable Eos % (Auto) Not Reportable Baso % (Auto) Not Reportable Neut # (Auto) Lymph # (Auto) Not Reportable [place] # (Auto) Not Reportable Eos # (Auto) Baso # (Auto) Not Reportable Sodium 132 L Potassium 4.5 Chloride 100 Carbon Dioxide 21 L BUN 26 H Creatinine 0.85 Estimated GFR > 60 BUN/Creatinine Ratio 30.6 H Glucose 141 H Calcium 8.7 Nasal Screen MRSA (PCR) [facility] Social History household members: significant other and family Smoking Status: Never smoker alcohol intake: never Assessment & Plan Assessment and plan (1) Hyperkalemia: Status: Acute (2) Sinus tachycardia: Status: Acute (3) Meckel's diverticulum: Status: Acute (4) Small bowel obstruction: Status: Acute Plan Patient has persistent tachycardia is concerning. He appears to be in excess of 3 L up. Have discussed the patient with the hospitalist, whom I have asked to see the patient in consultation. Per our discussion, I will order a CT angio of the lungs. Time-Based Coding :: [TOTAL MINUTES] spent with patient and on the chart (including review of chart, obtaining history, exam, reviewing outside data, placing orders, documenting exam and treatment plan, and counseling patient) on [DATE]. PROFEE Director Construction Services Document charge(s): Yes
[2024-10-04 10:19] LABS: Lactate (Lactic Acid) 1.7 mmol/L (0.7-2.1)
--- NOTE | 2024-10-04 11:04 | DI.RAD.S_ITS ---
PROCEDURE: XR ABDOMEN 1V INDICATIONS: NG placement TECHNIQUE: One view of the abdomen acquired. COMPARISON: None. FINDINGS: Surgical changes and devices: Gastric tube tip and side port project over the stomach. Laparotomy defect. Bowel: Bowel gas pattern is normal. Soft tissues: No suspicious abdominal calcifications. Visualized solid organ contours appear normal in size. Bones: No suspicious bony lesions. IMPRESSION: Gastric tube tip and side port project over the stomach. Dictated by: Juice Hernández M.D. on 10/04/2024 at 12:49 Approved by: Juice Hernández M.D. on 10/04/2024 at 12:50
[2024-10-04] MEDS: fentaNYL 1,000 MCG in DEXTROSE 5% IN WATER 230 ML 23.417 MCG IV (11:32)
[2024-10-04] MEDS: SODIUM CHLORIDE 0.9% 1,000 ML 1000 ML IV ×2 (11:37→14:34)
--- NOTE | 2024-10-04 12:30 | DIET.CONS ---
Dietary Consultation Note Admission Date: 10/02/2024 21:26 Assessment: 19 y M admitted for SBO, post-op exploratory laparotomy with small-bowel resection. Dietitian screened for MNA score. Pt is NPO day 4. Nauseated and episode of emesis today. Per surgery note, further scans today. Met with pt and family at bedside who confirm abd pain started this past 09/30. Before then, denies changes in appetite or PO intake, eating 2-3 meals and snacks as needed. Reports weight has been stable in past year. Ht: 193.04 cm Wt: 133.81 kg BMI: 36.7 UBW: no weight hx in chart, pt denies any recent weight loss. Last BM: 09/30/24 (10/02/24 19:05) MNA: 9 Neri Score: 20 Diet: 10/02/24 21:30 NPO Diet Diet Modifications: NPO Type: NPO except for Ice Chips Nutrition Percent Meal Consumed 0% 10/04/24 11:00 Labs: RBC 4.95 X10^6/uL (4.5-5.9) 10/04/24 08:25 Hgb 14.0 g/dL (13.5-17.5) 10/04/24 08:25 Hct 40.7 % (41-53) L 10/04/24 08:25 Creatinine 0.85 mg/dL (0.66-1.25) 10/04/24 08:25 Lactate 1.7 mmol/L (0.7-2.1) 10/04/24 10:00 Nutrition Diagnosis: Inadequate oral intake r/t altered GI function/structure aeb NPO day 4 Interventions: -Surgery to advance diet when medically ready Monitoring/Evaluations: days NPO, plan of care Electronically Signed by: Rochelle Grayson 10/04/24 12:30 Clinical Dietitian [address] [address]
--- NOTE | 2024-10-04 13:36 | CM.DPC ---
DCP Cont: Per Surgeon, pt with ongoing pain and distension in his abdomen and emesis and had to insert NGT again and a few liters of bile taken off and pt feeling somewhat better but not medically stable to discharge. Per TCM team, able to schedule pt with provider Kaya Sexton at [facility] on 10/27/24 at 1030. SW met bedside with pt and mother and updated on scheduled establish with PCP appointment and they are very appreciative and provided them with the information. SHRADDHA Haddad
[2024-10-04] MEDS: PIPERACILLIN/TAZO 4.5 GM in SODIUM CHLORIDE 0.9% 100 ML IV ×2 (14:34→22:00)
--- NOTE | 2024-10-04 15:42 | P.CONS_ITS ---
History of Present Illness Consult details Date Patient Seen: 10/04/24 Chief complaint: abd px, elevated hr, sweating,n/v Narrative: Chief complaint: Abdominal pain and small-bowel obstruction secondary to Meckel's diverticulum History of present illness: 19-year-old male who had abdominal pain on the 30 of September came into the emergency room the next morning findings at the time significant for a high- grade small-bowel obstruction. In the emergency department symptoms of emesis will relieved with NGT without suctioned NG tube was removed and patient was observed. Decision was made within 24 hours for operative intervention findings indicated for Meckel's diverticulum. Postoperative course characterized by ileus. Consultation for internal medicine consultation placed today. Patient reports abdominal discomfort is NPO Patient demonstrates signs of tachycardia diaphoresis findings of CT of the chest and upper parts of the abdomen demonstrated significant volume of bile in the stomach that was drained by NG tube. Laboratory evaluation demonstrates white count of 4.7 with 14% neutrophils and 41% band forms with toxic granulation and vacuolization. Review of systems: Patient does not report chest pain or shortness a breath No rigors or diaphoresis No urinary symptoms No delirium Physical exam: Large frame well-developed adult male alert and cogent answers questions appropriately HEENT unremarkable Lungs clear from apices to bases Heart rate and rhythm regular tachycardic and heart is hyperdynamic Abdomen is distended but not firm I could not appreciate bowel sounds no peritoneal signs and no rigidity or guarding Extremities no cyanosis clubbing edema neuro is nonfocal Objective: For laboratory and imaging please see the bottom of the note Assessment and plan: Signs and symptoms of systemic inflammatory response syndrome suspect small bowel injury due to obstruction. Suspect translocation of endotoxin Bettencourt compromised mucosal barrier leading to fever insensible fluid loss bandemia and other findings on peripheral smear. * Blood cultures obtained * Empiric Zosyn * Vigorous hydration goal urine output of 70-100 cc an hour * Serial lactic acid and CBC and chemistries * Accurate urine output measurement if this is problematic indwelling catheter will be recommended Family history of factor 5 Leiden in father * Testing here * Risks benefits of anticoagulation for DVT prophylaxis at this time probably favors not prophylaxis because of risk of perioperative hemorrhage as the endpoint perioperative hemorrhage versus PE, PEs more survivable 75 minutes of time was required in the evaluation of this consultation Meds Home Medications and Allergies Home Medications ?Medication ?Instructions ?Recorded ?Confirmed ?Type No Known Home Medications 10/01/2409/21 History Allergies Allergy/AdvReac Type Severity Reaction Status Date / Time No Known Drug Allergies Allergy Verified 10/02/24 19:02 Exam Vital Signs (past 8 hours): - 10/04/24 08:00 10/04/24 08:30 10/04/24 09:00 Pulse Rate 139 H 124 H 123 H Respiratory Rate 26 H 20 21 Blood Pressure 155/76 H Pulse Oximetry 94 94 96 Oxygen Delivery Method 10/04/24 09:17 10/04/24 09:17 10/04/24 09:30 Pulse Rate 131 H 131 H Respiratory Rate 20 20 Blood Pressure 155/76 H Pulse Oximetry 94 94 Oxygen Delivery Method 10/04/24 10:00 10/04/24 11:00 10/04/24 11:25 Pulse Rate 135 H 143 H Respiratory Rate 30 H Blood Pressure 155/76 H 148/72 H Pulse Oximetry 93 92 Oxygen Delivery Method 10/04/24 11:25 10/04/24 11:30 10/04/24 12:00 Pulse Rate 131 H 131 H 124 H Respiratory Rate Blood Pressure Pulse Oximetry 93 99 97 Oxygen Delivery Method 10/04/24 12:00 10/04/24 12:09 10/04/24 12:30 Pulse Rate 131 H Respiratory Rate Blood Pressure 136/71 Pulse Oximetry 100 Oxygen Delivery Method Room Air 10/04/24 13:00 10/04/24 13:00 10/04/24 13:30 Pulse Rate 137 H 133 H Respiratory Rate Blood Pressure 138/82 Pulse Oximetry 94 94 Oxygen Delivery Method 10/04/24 14:00 10/04/24 14:00 10/04/24 14:30 Pulse Rate 134 H 132 H Respiratory Rate Blood Pressure 148/78 H Pulse Oximetry 92 92 Oxygen Delivery Method 10/04/24 15:00 10/04/24 15:00 Pulse Rate 128 H Respiratory Rate Blood Pressure 123/64 Pulse Oximetry 93 Oxygen Delivery Method Oxygen Delivery Method Room Air Oxygen Flow Rate 0 Objective Labs 10/04/24 08:25 10/04/24 08:25 Labs: Laboratory Results - last 24 hr 10/03/24 10/03/24 10/04/24 15:58 18:35 08:25 WBC 4.7 RBC 4.95 Hgb 14.0 Hct 40.7 L MCV 82.4 MCH 28.3 MCHC 34.3 RDW 13.5 Plt Count 265 Neut % (Auto) Not Reportable Lymph % (Auto) Not Reportable [place] % (Auto) Not Reportable Eos % (Auto) Not Reportable Baso % (Auto) Not Reportable Lymph # (Auto) Not Reportable [place] # (Auto) Not Reportable Baso # (Auto) Not Reportable Total Counted 100 Seg Neutrophils % 14.0 L Band Neutrophils % 41.0 H Lymphocytes % (Manual) 19.0 L Monocytes % (Manual) 24.0 H Eosinophils % (Manual) 1.0 L Metamyelocytes % 1.0 H Neutrophils # (Manual) 2585 L Toxic Granulation Present H Toxic Vacuolation Present H Platelet Estimate Adequate on smear RBC Morphology Normal morphology Sodium 132 L 132 L Potassium 4.9 4.5 Chloride 101 100 Carbon Dioxide 23 21 L BUN 20 26 H Creatinine 1.21 0.85 Estimated GFR > 60 > 60 BUN/Creatinine Ratio 16.5 30.6 H Glucose 124 H 141 H POC Whole Bld Glucose Lactate Calcium 8.2 L 8.7 Nasal Screen MRSA (PCR) Not detected 10/04/24 10/04/24 10:00 12:02 WBC RBC Hgb Hct MCV MCH MCHC RDW Plt Count Neut % (Auto) Lymph % (Auto) [place] % (Auto) Eos % (Auto) Baso % (Auto) Lymph # (Auto) [place] # (Auto) Baso # (Auto) Total Counted Seg Neutrophils % Band Neutrophils % Lymphocytes % (Manual) Monocytes % (Manual) Eosinophils % (Manual) Metamyelocytes % Neutrophils # (Manual) Toxic Granulation Toxic Vacuolation Platelet Estimate RBC Morphology Sodium Potassium Chloride Carbon Dioxide BUN Creatinine Estimated GFR BUN/Creatinine Ratio Glucose POC Whole Bld Glucose 126 H Lactate 1.7 Calcium Nasal Screen MRSA (PCR) [facility] Social History household members: significant other and family Tobacco & Substance Use Smoking Status: Never smoker alcohol intake: never Assessment & Plan Time-Based Coding :: [TOTAL MINUTES] spent with patient and on the chart (including review of chart, obtaining history, exam, reviewing outside data, placing orders, documenting exam and treatment plan, and counseling patient) on [DATE].
[2024-10-04 17:53] LABS: Hematocrit 39.2 % (41-53); Hemoglobin 13.2 g/dL (13.5-17.5); Mean Corpuscular HGB Conc 33.6 % (30-36); Mean Corpuscular Hemoglobin 27.9 PG (26-34); Mean Corpuscular Volume 82.9 fL (80-100); Platelet Count 250 X10^3/uL (150-400)
[2024-10-04 18:07] LABS: Blood Urea Nitrogen 26 mg/dL (9-20); Calcium 8.7 mg/dL (8.4-10.2); Carbon Dioxide 27 mmol/L (22-32); Chloride 97 mmol/L (98-107); Estimated Glomerular Filt Rate > 60 mL/min (>60); Glucose 133 mg/dL (70-99); HEMOLYSIS < 15 (0-50); Potassium 3.9 mmol/L (3.4-5.1); Sodium 133 mmol/L (137-145)
[2024-10-04 18:08] LABS: Lactate (Lactic Acid) 1.2 mmol/L (0.7-2.1)
[2024-10-04] MEDS: fentaNYL 1,000 MCG in DEXTROSE 5% IN WATER 230 ML 56.869 MCG IV (18:19)
[2024-10-04 18:25] LABS: Add Manual Diff / Slide Review YES
[2024-10-04 18:29] LABS: Band Neutrophils Percent 30.0 % (3-7); Eosinophils Percent Manual 1.0 % (2-4); Metamyelocytes Percent 6.0 % (-0); Myelocytes Percent 1.0 % (-0); Neutrophils Absolute Manual 2793 /uL (3000-5900); Segmented Neutrophils Percent 27.0 % (38-70); Total Cells Counted 100
[2024-10-04 18:30] LABS: RBC Morphology Normal Morphology; Toxic Granulation Present
[2024-10-04 18:31] LABS: Lymphocytes Percent Manual 22.0 % (25-45); Monocytes Percent Manual 13.0 % (2-11); Toxic Vacuolation Present
--- NOTE | 2024-10-04 19:52 | DI.RAD.S_ITS ---
PROCEDURE: XR CHEST 1V INDICATIONS: NGT verification TECHNIQUE: One view of the chest was acquired. COMPARISON: [facility], CT, CT ANGIO CHEST PE PROTOCOL, 10/04/2024, 10:15. [facility], CR, XR ABDOMEN 1V, 10/04/2024, 11:05. FINDINGS: Surgical changes and devices: Nasogastric tube projects below the left. Lungs and pleura: Linear left mid lobe opacity. Mediastinum: Mediastinal contours appear normal. Heart size is normal. Bones and chest wall: No suspicious bony lesions. Overlying soft tissues appear unremarkable. IMPRESSION: Nasogastric tube is. Left mid lobe opacity likely scarring versus atelectasis Dictated by: Nargis Rios M.D. on 10/04/2024 at 20:16 Approved by: Nargis Rios M.D. on 10/04/2024 at 20:17
[2024-10-04] MEDS: KCL 20 MEQ IN NS 1,000 ML 150 MEQ IV (20:06)
[2024-10-04] MEDS: fentaNYL 1,000 MCG in DEXTROSE 5% IN WATER 230 ML 53.524 MCG IV (22:37)
[2024-10-05] VITALS (50 sets, daily range): BP systolic 119–134; BP diastolic 67–87; PULSE 102–140; RESP 22; TEMP 36.2–36.7; O2SAT 90–97
[2024-10-05] MEDS: HYDROMORPHONE 2 MG INJ IV (00:02)
[2024-10-05] MEDS: KETOROLAC 30 MG/ML VIAL 15 MG IV ×4 (01:55→19:59)
[2024-10-05] MEDS: KCL 20 MEQ IN NS 1,000 ML 150 MEQ IV ×4 (02:48→23:08)
[2024-10-05] MEDS: fentaNYL 1,000 MCG in DEXTROSE 5% IN WATER 230 ML 56.869 MCG IV ×2 (02:49→07:47)
[2024-10-05] MEDS: ACETAMINOPHEN IV 1,000 MG/100 ML VIAL 400 MG IV ×3 (04:01→19:59)
[2024-10-05 05:16] LABS: Add Manual Diff / Slide Review NO; Hematocrit 36.4 % (41-53); Hemoglobin 12.6 g/dL (13.5-17.5); Lymphocytes Absolute Auto 1000 /uL (1100-4500); Mean Corpuscular HGB Conc 34.8 % (30-36); Mean Corpuscular Hemoglobin 28.7 PG (26-34); Mean Corpuscular Volume 82.6 fL (80-100); Platelet Count 258 X10^3/uL (150-400)
[2024-10-05 05:28] LABS: Lactate (Lactic Acid) 0.9 mmol/L (0.7-2.1)
[2024-10-05 05:31] LABS: Blood Urea Nitrogen 27 mg/dL (9-20); Calcium 8.6 mg/dL (8.4-10.2); Carbon Dioxide 30 mmol/L (22-32); Chloride 95 mmol/L (98-107); Estimated Glomerular Filt Rate > 60 mL/min (>60); Glucose 125 mg/dL (70-99); HEMOLYSIS < 15 (0-50); Potassium 4.0 mmol/L (3.4-5.1); Sodium 133 mmol/L (137-145)
[2024-10-05] MEDS: PIPERACILLIN/TAZO 4.5 GM in SODIUM CHLORIDE 0.9% 100 ML IV ×3 (06:01→22:14)
--- NOTE | 2024-10-05 07:38 | PM.PN.IH.1 ---
Subjective Subjective Date Patient Seen: 10/05/24 Time Patient Seen: 07:39 Interval history: Patient is doing well and states his pain is under better control. He states he has the urge to have a bowel movement but has not passed any flatus as of yet. Exam Vital Signs (past 8 hours): - 10/05/24 00:00 10/05/24 00:00 10/05/24 00:00 Temperature Pulse Rate 129 H Respiratory Rate Blood Pressure 134/80 Pulse Oximetry 91 Oxygen Delivery Method Room Air Nasal Cannula Oxygen Flow Rate 10/05/24 00:30 10/05/24 01:00 10/05/24 01:00 Temperature Pulse Rate 115 H 110 H Respiratory Rate Blood Pressure 130/70 Pulse Oximetry 91 92 Oxygen Delivery Method Oxygen Flow Rate 10/05/24 01:30 10/05/24 02:00 10/05/24 02:00 Temperature Pulse Rate 109 H 114 H Respiratory Rate Blood Pressure 128/69 Pulse Oximetry 92 92 Oxygen Delivery Method Oxygen Flow Rate 10/05/24 02:30 10/05/24 03:00 10/05/24 03:00 Temperature Pulse Rate 111 H 109 H Respiratory Rate Blood Pressure 124/67 Pulse Oximetry 91 92 Oxygen Delivery Method Oxygen Flow Rate 10/05/24 03:30 10/05/24 04:00 10/05/24 04:00 Temperature Pulse Rate 107 H 113 H Respiratory Rate Blood Pressure Pulse Oximetry 91 92 Oxygen Delivery Method Room Air Oxygen Flow Rate 10/05/24 04:00 10/05/24 04:30 10/05/24 05:00 Temperature 97.2 F L Pulse Rate 111 H 108 H Respiratory Rate 22 Blood Pressure 123/86 Pulse Oximetry 94 93 Oxygen Delivery Method Oxygen Flow Rate 2 10/05/24 05:00 10/05/24 05:30 10/05/24 06:00 Temperature Pulse Rate 112 H 108 H Respiratory Rate Blood Pressure 119/82 Pulse Oximetry 91 93 Oxygen Delivery Method Oxygen Flow Rate 10/05/24 06:00 Temperature Pulse Rate Respiratory Rate Blood Pressure 119/74 Pulse Oximetry Oxygen Delivery Method Oxygen Flow Rate Oxygen Delivery Method Room Air Oxygen Flow Rate 2 Narrative Exam Narrative: Neck is supple Chest is clear but with diminished breath sounds in the bases. Cardiac reveals a rapid rate regular rhythm Abdomen is distended, soft, nontender with hypoactive high-pitched bowel sounds Dressing is unchanged with a small amount of serosanguineous staining. Extremities show minimal edema. Objective Labs 10/05/24 03:50 10/05/24 03:50 Labs: Laboratory Results - last 24 hr 10/04/24 10/04/24 10/04/24 08:25 10:00 12:02 WBC 4.7 RBC 4.95 Hgb 14.0 Hct 40.7 L MCV 82.4 MCH 28.3 MCHC 34.3 RDW 13.5 Plt Count 265 Neut % (Auto) Not Reportable Lymph % (Auto) Not Reportable [place] % (Auto) Not Reportable Eos % (Auto) Not Reportable Baso % (Auto) Not Reportable Neut # (Auto) Lymph # (Auto) Not Reportable [place] # (Auto) Not Reportable Eos # (Auto) Baso # (Auto) Not Reportable Total Counted 100 Seg Neutrophils % 14.0 L Band Neutrophils % 41.0 H Lymphocytes % (Manual) 19.0 L Monocytes % (Manual) 24.0 H Eosinophils % (Manual) 1.0 L Metamyelocytes % 1.0 H Myelocytes % Neutrophils # (Manual) 2585 L Toxic Granulation Present H Toxic Vacuolation Present H Platelet Estimate Adequate on smear RBC Morphology Normal morphology Sodium 132 L Potassium 4.5 Chloride 100 Carbon Dioxide 21 L BUN 26 H Creatinine 0.85 Estimated GFR > 60 BUN/Creatinine Ratio 30.6 H Glucose 141 H POC Whole Bld Glucose 126 H Lactate 1.7 Calcium 8.7 10/04/24 10/04/24 10/05/24 17:42 18:09 00:39 WBC 4.9 RBC 4.73 Hgb 13.2 L Hct 39.2 L MCV 82.9 MCH 27.9 MCHC 33.6 RDW 14.0 Plt Count 250 Neut % (Auto) Not Reportable Lymph % (Auto) Not Reportable [place] % (Auto) Not Reportable Eos % (Auto) Not Reportable Baso % (Auto) Not Reportable Neut # (Auto) Not Reportable Lymph # (Auto) Not Reportable [place] # (Auto) Not Reportable Eos # (Auto) Not Reportable Baso # (Auto) Not Reportable Total Counted 100 Seg Neutrophils % 27.0 L D Band Neutrophils % 30.0 H Lymphocytes % (Manual) 22.0 L Monocytes % (Manual) 13.0 H Eosinophils % (Manual) 1.0 L Metamyelocytes % 6.0 H Myelocytes % 1.0 H Neutrophils # (Manual) 2793 L Toxic Granulation Present H Toxic Vacuolation Present H Platelet Estimate Adequate on smear RBC Morphology Normal morphology Sodium 133 L Potassium 3.9 Chloride 97 L Carbon Dioxide 27 BUN 26 H Creatinine 0.94 Estimated GFR > 60 BUN/Creatinine Ratio 27.7 H Glucose 133 H POC Whole Bld Glucose 119 H 135 H Lactate 1.2 Calcium 8.7 10/05/24 03:50 WBC 6.7 RBC 4.40 L Hgb 12.6 L Hct 36.4 L MCV 82.6 MCH 28.7 MCHC 34.8 RDW 13.8 Plt Count 258 Neut % (Auto) 68.7 Lymph % (Auto) 15.1 L [place] % (Auto) 13.9 Eos % (Auto) 2.1 Baso % (Auto) 0.2 Neut # (Auto) 4600 Lymph # (Auto) 1000 L [place] # (Auto) 900 Eos # (Auto) 100 Baso # (Auto) 0 Total Counted Seg Neutrophils % Band Neutrophils % Lymphocytes % (Manual) Monocytes % (Manual) Eosinophils % (Manual) Metamyelocytes % Myelocytes % Neutrophils # (Manual) Toxic Granulation Toxic Vacuolation Platelet Estimate RBC Morphology Sodium 133 L Potassium 4.0 Chloride 95 L Carbon Dioxide 30 BUN 27 H Creatinine 1.04 Estimated GFR > 60 BUN/Creatinine Ratio 26.0 H Glucose 125 H POC Whole Bld Glucose Lactate 0.9 Calcium 8.6 PFSH Social History household members: significant other and family alcohol intake: never Assessment & Plan Assessment and plan (1) Sinus tachycardia: Status: Acute (2) Meckel's diverticulum: Status: Acute (3) Small bowel obstruction: Status: Acute Plan Patient appears to be turning the corner with a decrease in his heart rate. White count shows 6 0.7 K with a lactate of 0.9. He states he is feeling better. Still with high output NG. Reportedly, the patient has consumed about 500 cc of water over the night. We will repeat the CBC and BMP at 4:00 p.m.. After discussion with Dr. Chi, we will order a chest x-ray for today. I talked with the patient and his fiancee and have recommended more aggressive mobilization as well as more aggressive pulmonary toilet. Time-Based Coding :: [TOTAL MINUTES] spent with patient and on the chart (including review of chart, obtaining history, exam, reviewing outside data, placing orders, documenting exam and treatment plan, and counseling patient) on [DATE]. 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
--- NOTE | 2024-10-05 07:45 | DI.RAD.S_ITS ---
PROCEDURE: XR CHEST 1V INDICATIONS: SOB TECHNIQUE: One view of the chest was acquired. COMPARISON: [facility], CR, XR CHEST 1V, 10/04/2024, 19:54. FINDINGS: Surgical changes and devices: Gastric tube tip and side port project over the stomach. Lungs and pleura: Low lung volumes. No consolidation. Mediastinum: Mediastinal contours appear normal. Heart size is normal. Bones and chest wall: No suspicious bony lesions. Overlying soft tissues appear unremarkable. IMPRESSION: No acute cardiopulmonary abnormality is seen. Dictated by: Juice Hernández M.D. on 10/05/2024 at 8:51 Approved by: Juice Hernández M.D. on 10/05/2024 at 8:55
--- NOTE | 2024-10-05 11:14 | CM.DPC ---
DCP Cont. Reviewed EMR and team rounds for pt's medical status and updates. Per Hospitalist, pt will need another 4-days before being medically cleared for home d/c. Monitoring for final evolving d/c needs.
[2024-10-05] MEDS: fentaNYL 1,000 MCG in DEXTROSE 5% IN WATER 230 ML 33.453 MCG IV ×2 (12:47→20:00)
[2024-10-05] MEDS: HYDROMORPHONE 1 MG INJ IV ×2 (14:41→17:30)
[2024-10-05] MEDS: ONDANSETRON 4 MG/2 ML INJ IV (17:34)
--- NOTE | 2024-10-05 18:31 | P.PN_ITS ---
Subjective Subjective Date Patient Seen: 10/05/24 Interval history: Chief complaint: Abdominal pain and small-bowel obstruction secondary to Meckel's diverticulum History of present illness: 19-year-old male who had abdominal pain on the 30 of September came into the emergency room the next morning findings at the time significant for a high- grade small-bowel obstruction. In the emergency department symptoms of emesis will relieved with NGT without suctioned NG tube was removed and patient was observed. Decision was made within 24 hours for operative intervention findings indicated for Meckel's diverticulum. Postoperative course characterized by ileus. Consultation for internal medicine consultation placed today. Patient reports abdominal discomfort is NPO Patient demonstrates signs of tachycardia diaphoresis findings of CT of the chest and upper parts of the abdomen demonstrated significant volume of bile in the stomach that was drained by NG tube. Laboratory evaluation demonstrates white count of 4.7 with 14% neutrophils and 41% band forms with toxic granulation and vacuolization. Hospital course: 10/05: Bandemia has improved with IV antibiotics and hydration urine output is also improved patient is still having significant NG output greater than 2 L in the last 12 hours Review of systems: Patient does not report chest pain or shortness a breath No rigors or diaphoresis No urinary symptoms No delirium Physical exam: Large frame well-developed adult male alert and cogent answers questions appropriately HEENT unremarkable Lungs clear from apices to bases Heart rate and rhythm regular tachycardic and heart is hyperdynamic Abdomen is distended but not firm I could not appreciate bowel sounds no peritoneal signs and no rigidity or guarding Extremities no cyanosis clubbing edema neuro is nonfocal Objective: For laboratory and imaging please see the bottom of the note Assessment and plan: Signs and symptoms of systemic inflammatory response syndrome suspect small bowel injury due to obstruction. Suspect translocation of endotoxin Bettencourt compromised mucosal barrier leading to fever insensible fluid loss bandemia and other findings on peripheral smear. * Blood cultures obtained no growth in 24 hours * Empiric Zosyn for control of toxemia from translocation across damaged bowel mucosa * Vigorous hydration goal urine output of 70-100 cc an hour * Serial lactic acid and CBC and chemistries improving * Accurate urine output measurement if this is problematic indwelling catheter will be recommended if patient can not urinate Family history of factor 5 Leiden in father * Testing here * Risks benefits of anticoagulation for DVT prophylaxis at this time probably favors not prophylaxis because of risk of perioperative hemorrhage as the endpoint perioperative hemorrhage versus PE, PEs more survivable 55 minutes of time was required in the evaluation of this consultation Exam Vital Signs (past 8 hours): - 10/05/24 11:00 10/05/24 11:00 10/05/24 11:30 Pulse Rate 120 H 115 H Blood Pressure 121/82 Pulse Oximetry 93 94 10/05/24 12:00 10/05/24 12:00 10/05/24 12:30 Pulse Rate 116 H 132 H Blood Pressure 124/69 Pulse Oximetry 93 94 10/05/24 13:00 10/05/24 13:30 10/05/24 14:00 Pulse Rate 140 H 134 H Blood Pressure 130/72 Pulse Oximetry 90 L 91 10/05/24 14:23 10/05/24 15:00 10/05/24 15:00 Pulse Rate 111 H Blood Pressure 130/72 131/77 Pulse Oximetry 93 10/05/24 15:30 10/05/24 16:00 10/05/24 16:00 Pulse Rate 109 H 115 H Blood Pressure 126/75 Pulse Oximetry 94 93 10/05/24 16:30 10/05/24 17:00 10/05/24 17:08 Pulse Rate 115 H 124 H 127 H Blood Pressure Pulse Oximetry 93 94 93 10/05/24 17:08 10/05/24 17:30 10/05/24 18:00 Pulse Rate 118 H Blood Pressure 119/75 126/73 Pulse Oximetry 91 10/05/24 18:00 Pulse Rate 114 H Blood Pressure Pulse Oximetry 90 L Oxygen Delivery Method Room Air Oxygen Flow Rate 2 Objective Labs 10/05/24 03:50 10/05/24 03:50 Labs: Laboratory Results - last 24 hr 10/04/24 10/05/24 10/05/24 17:42 00:39 03:50 WBC 6.7 RBC 4.40 L Hgb 12.6 L Hct 36.4 L MCV 82.6 MCH 28.7 MCHC 34.8 RDW 13.8 Plt Count 258 Neut % (Auto) 68.7 Lymph % (Auto) 15.1 L [place] % (Auto) 13.9 Eos % (Auto) 2.1 Baso % (Auto) 0.2 Neut # (Auto) 4600 Lymph # (Auto) 1000 L [place] # (Auto) 900 Eos # (Auto) 100 Baso # (Auto) 0 Total Counted 100 Seg Neutrophils % 27.0 L D Band Neutrophils % 30.0 H Lymphocytes % (Manual) 22.0 L Monocytes % (Manual) 13.0 H Eosinophils % (Manual) 1.0 L Metamyelocytes % 6.0 H Myelocytes % 1.0 H Neutrophils # (Manual) 2793 L Toxic Granulation Present H Toxic Vacuolation Present H Platelet Estimate Adequate on smear RBC Morphology Normal morphology Sodium 133 L Potassium 4.0 Chloride 95 L Carbon Dioxide 30 BUN 27 H Creatinine 1.04 Estimated GFR > 60 BUN/Creatinine Ratio 26.0 H Glucose 125 H POC Whole Bld Glucose 135 H Lactate 0.9 Calcium 8.6 10/05/24 10/05/24 08:30 13:03 WBC RBC Hgb Hct MCV MCH MCHC RDW Plt Count Neut % (Auto) Lymph % (Auto) [place] % (Auto) Eos % (Auto) Baso % (Auto) Neut # (Auto) Lymph # (Auto) [place] # (Auto) Eos # (Auto) Baso # (Auto) Total Counted Seg Neutrophils % Band Neutrophils % Lymphocytes % (Manual) Monocytes % (Manual) Eosinophils % (Manual) Metamyelocytes % Myelocytes % Neutrophils # (Manual) Toxic Granulation Toxic Vacuolation Platelet Estimate RBC Morphology Sodium Potassium Chloride Carbon Dioxide BUN Creatinine Estimated GFR BUN/Creatinine Ratio Glucose POC Whole Bld Glucose 130 H 111 H Lactate Calcium PFSH Social History household members: significant other and family alcohol intake: never Assessment & Plan Time-Based Coding :: [TOTAL MINUTES] spent with patient and on the chart (including review of chart, obtaining history, exam, reviewing outside data, placing orders, documenting exam and treatment plan, and counseling patient) on [DATE].
--- NOTE | 2024-10-05 19:30 | PC.NURSE ---
shift summary: Upon this RN's arrival this morning patient had episode of emesis approx 600cc green fluid. Patient's NG tube flushed and suction reconnected and able to start draining again, patient had immediate drainage of over 800cc in canister. Patient able to use urinal independently or with help from his girlfriend. Patient's IVF infusing as ordered. Patient maintained on fentanyl IV infusion for pain management as ordered, patient rates pain mostly around 2/10 today. patient is more calm and comfortable in afternoon. Dr. Dave updated on patient's NG output, pain medications, and activity. Dr. Dave encouraged discontinuing NG today and limiting ice chips once out, patient updated on plan. NGT clamped/disconnnected from suction at 1600. At approx 1730 patient complained of increased abd pressure with some dry heaves and spit up. Float Rn medicated with zofran and IV dilaudid, Dr. Dave notified and patient reconnected to WS, with relief of symptoms. Patient was able to sit up at bedside today and dangle, as well as stand at bedside with walker and tolerated sitting in chair for a couple hours. Call light within reach, patient able to make his needs known. At change of shift, patient resting in bed, visiting with friends without questions or concerns at this time.
[2024-10-05 19:40] LABS: Hematocrit 35.4 % (41-53); Hemoglobin 12.3 g/dL (13.5-17.5); Mean Corpuscular HGB Conc 34.9 % (30-36); Mean Corpuscular Hemoglobin 28.7 PG (26-34); Mean Corpuscular Volume 82.4 fL (80-100); Platelet Count 280 X10^3/uL (150-400)
[2024-10-05 19:41] LABS: Add Manual Diff / Slide Review YES
[2024-10-05 19:51] LABS: Lactate (Lactic Acid) 0.8 mmol/L (0.7-2.1)
[2024-10-05 19:52] LABS: Blood Urea Nitrogen 24 mg/dL (9-20); Calcium 8.7 mg/dL (8.4-10.2); Carbon Dioxide 32 mmol/L (22-32); Chloride 92 mmol/L (98-107); Estimated Glomerular Filt Rate > 60 mL/min (>60); Glucose 108 mg/dL (70-99); HEMOLYSIS < 15 (0-50); Potassium 3.9 mmol/L (3.4-5.1); Sodium 132 mmol/L (137-145)
[2024-10-05 19:58] LABS: Band Neutrophils Percent 14.0 % (3-7); Eosinophils Percent Manual 1.0 % (2-4); Lymphocytes Percent Manual 19.0 % (25-45); Metamyelocytes Percent 1.0 % (-0); Monocytes Percent Manual 5.0 % (2-11); Neutrophils Absolute Manual 6882 /uL (3000-5900); RBC Morphology Normal Morphology; Segmented Neutrophils Percent 60.0 % (38-70); Total Cells Counted 100
[2024-10-06] VITALS (43 sets, daily range): BP systolic 116–143; BP diastolic 74–91; PULSE 100–122; TEMP 36.4–37.3; O2SAT 90–96
[2024-10-06] MEDS: HYDROMORPHONE 2 MG INJ IV ×2 (00:15→21:59)
[2024-10-06] MEDS: ACETAMINOPHEN IV 1,000 MG/100 ML VIAL 400 MG IV ×3 (04:19→19:53)
[2024-10-06] MEDS: fentaNYL 1,000 MCG in DEXTROSE 5% IN WATER 230 ML 33.453 MCG IV (04:20)
[2024-10-06] MEDS: KCL 20 MEQ IN NS 1,000 ML 150 MEQ IV ×2 (06:02→13:09)
[2024-10-06] MEDS: PIPERACILLIN/TAZO 4.5 GM in SODIUM CHLORIDE 0.9% 100 ML IV ×3 (06:02→22:00)
--- NOTE | 2024-10-06 06:14 | PC.NURSE ---
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 Fentanyl gtt maintained at 1mcg/kg/hr. 2mg IV Dilaudid given x1 for breakthrough pain. Scheduled IV Tylenol and Toradol continue. Patient only took in few ice chips and sips of water, had >4 liters bile fluid out of NGT. He would experience pressure build-up and request small air boluses to keep NGT patent. Bowel sounds still absent, denied nausea or flatus. HR 100-110 most of the time, other VSS. Did require 2L NC to keep SpO2 >90% while asleep.
[2024-10-06] MEDS: KETOROLAC 30 MG/ML VIAL 15 MG IV ×3 (08:50→19:54)
--- NOTE | 2024-10-06 09:19 | P.PN_ITS ---
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 In the emergency department symptoms of emesis will relieved with NGT without suctioned NG tube was removed and patient was observed. Decision was made within 24 hours for operative intervention findings indicated for Meckel's diverticulum. Postoperative course characterized by ileus. Consultation for internal medicine consultation placed today. Patient reports abdominal discomfort is NPO Patient demonstrates signs of tachycardia diaphoresis findings of CT of the chest and upper parts of the abdomen demonstrated significant volume of bile in the stomach that was drained by NG tube. Laboratory evaluation demonstrates white count of 4.7 with 14% neutrophils and 41% band forms with toxic granulation and vacuolization. Hospital course: 10/05: Bandemia has improved with IV antibiotics and hydration urine output is also improved patient is still having significant NG output greater than 2 L in the last 12 hours S: Small amount of flatus, less distention of the abdomen and tenderness. No nausea. Exam Vital Signs (past 8 hours): - 10/06/24 01:30 10/06/24 01:33 10/06/24 01:33 Temperature Pulse Rate 108 H 108 H Blood Pressure 116/79 Pulse Oximetry 95 95 Oxygen Delivery Method 10/06/24 02:00 10/06/24 02:00 10/06/24 02:00 Temperature 97.8 F Pulse Rate 100 H Blood Pressure 118/80 Pulse Oximetry 95 Oxygen Delivery Method 10/06/24 02:30 10/06/24 03:00 10/06/24 03:00 Temperature 97.7 F Pulse Rate 107 H 108 H Blood Pressure Pulse Oximetry 94 94 Oxygen Delivery Method 10/06/24 03:30 10/06/24 04:00 10/06/24 04:15 Temperature Pulse Rate 115 H Blood Pressure 121/82 Pulse Oximetry 93 Oxygen Delivery Method Nasal Cannula 10/06/24 04:35 10/06/24 05:00 10/06/24 05:00 Temperature 98.4 F 97.8 F Pulse Rate 103 H Blood Pressure Pulse Oximetry 95 Oxygen Delivery Method 10/06/24 05:30 10/06/24 06:00 10/06/24 06:00 Temperature Pulse Rate 101 H 102 H Blood Pressure 117/76 Pulse Oximetry 95 94 Oxygen Delivery Method 10/06/24 06:30 10/06/24 06:45 10/06/24 07:00 Temperature 98.3 F Pulse Rate 103 H 111 H Blood Pressure Pulse Oximetry 94 92 Oxygen Delivery Method 10/06/24 07:30 10/06/24 08:00 10/06/24 08:00 Temperature Pulse Rate 113 H 113 H Blood Pressure 128/79 Pulse Oximetry 95 94 Oxygen Delivery Method 10/06/24 08:30 10/06/24 09:00 Temperature 98.3 F Pulse Rate 114 H Blood Pressure Pulse Oximetry 92 Oxygen Delivery Method Oxygen Delivery Method Nasal Cannula Oxygen Flow Rate 0 Narrative Exam Narrative: NAD, alert and oriented. Fluent speech. NGT. Lungs are clear, normal rate and effort. Heart is regular, no murmur gallop or rub. Abdomen is soft, non distended. Nontender, surgical wound is unremarkable. Extremities are free of edema. Objective Imaging CT scan - abdomen: Radiologist's impression: Dilated fluid-filled loops of small bowel most consistent with partial small bowel obstruction. CT scan - chest: Radiologist's impression: 1. Poor opacification of the pulmonary arteries despite repeat scanning. Within these limits, no large central pulmonary embolus is seen although more peripheral emboli could be missed. 2. Small bilateral pleural effusions with bibasilar atelectasis. 3. Fluid-filled esophagus with mild circumferential esophageal wall thickening that could indicate esophagitis. 4. Distended fluid-filled appearance of the stomach and included small bowel compatible with ileus or small-bowel obstruction. 5. Small volume of upper abdominal ascites. Labs 10/05/24 19:29 10/05/24 19:29 Labs: Laboratory Results - last 24 hr 10/05/24 10/05/24 10/05/24 13:03 19:29 20:38 WBC 9.3 RBC 4.30 L Hgb 12.3 L Hct 35.4 L MCV 82.4 MCH 28.7 MCHC 34.9 RDW 13.8 Plt Count 280 Neut % (Auto) Not Reportable Lymph % (Auto) Not Reportable [place] % (Auto) Not Reportable Eos % (Auto) Not Reportable Baso % (Auto) Not Reportable Lymph # (Auto) Not Reportable [place] # (Auto) Not Reportable Baso # (Auto) Not Reportable Total Counted 100 Seg Neutrophils % 60.0 D Band Neutrophils % 14.0 H Lymphocytes % (Manual) 19.0 L Monocytes % (Manual) 5.0 Eosinophils % (Manual) 1.0 L Metamyelocytes % 1.0 H Neutrophils # (Manual) 6882 H RBC Morphology Normal morphology Sodium 132 L Potassium 3.9 Chloride 92 L Carbon Dioxide 32 BUN 24 H Creatinine 0.89 Estimated GFR > 60 BUN/Creatinine Ratio 27.0 H Glucose 108 H POC Whole Bld Glucose 111 H 113 H Lactate 0.8 Calcium 8.7 10/06/24 10/06/24 01:29 09:05 WBC RBC Hgb Hct MCV MCH MCHC RDW Plt Count Neut % (Auto) Lymph % (Auto) [place] % (Auto) Eos % (Auto) Baso % (Auto) Lymph # (Auto) [place] # (Auto) Baso # (Auto) Total Counted Seg Neutrophils % Band Neutrophils % Lymphocytes % (Manual) Monocytes % (Manual) Eosinophils % (Manual) Metamyelocytes % Neutrophils # (Manual) RBC Morphology Sodium Potassium Chloride Carbon Dioxide BUN Creatinine Estimated GFR BUN/Creatinine Ratio Glucose POC Whole Bld Glucose 106 H 104 H Lactate Calcium [facility] Social History household members: significant other and family alcohol intake: never Assessment & Plan Assessment & Plan narrative: 1. SBO, present on admission and improved. * Blood cultures obtained no growth in 24 hours * Empiric Zosyn for control of toxemia from translocation across damaged bowel mucosa * Vigorous hydration goal urine output of 70-100 cc an hour * Serial lactic acid and CBC and chemistries improving * Accurate urine output measurement if this is problematic indwelling catheter will be recommended if patient can not urinate 2. Family history of factor 5 Leiden in father * Testing here * Risks benefits of anticoagulation for DVT prophylaxis at this time probably favors not prophylaxis because of risk of perioperative hemorrhage as the endpoint perioperative hemorrhage versus PE, PEs more survivable PLAN: -clamp NG tube later today. -encourage ambulation. -monitor for flatus and stool. -advance to clear liquids as able. Time-Based Coding :: [TOTAL MINUTES] spent with patient and on the chart (including review of chart, obtaining history, exam, reviewing outside data, placing orders, documenting exam and treatment plan, and counseling patient) on [DATE].
--- NOTE | 2024-10-06 09:47 | PC.NURSE ---
09 DR NATARAJAN ROUNDED ON PATIENT AND REMOVED MIDLINE INCISION DRESSING. MADE AWARE OF 4L NG OUTPUT OVERNIGHT. PT REPORTED 1 EPISODE OF FLATUS TO MD. MD STATED AFTER ONE MORE, WE CAN D/C NGT AND START CLD. 929 DR RAE ROUNDED. STATES TO TURN FENT GTT OFF.
[2024-10-06] MEDS: HYDROMORPHONE 1 MG INJ IV ×4 (13:08→21:33)
--- NOTE | 2024-10-06 13:38 | CM.DPC ---
DCP Cont. Reviewed EMR and team rounds for pt's medical status updates. Plan is for pt to work with PT/OT today, and if he can safely ambulate, then he will d/c home with family. No further CM d/c needs identified at this time.
--- NOTE | 2024-10-06 14:24 | PM.PN.IH.1 ---
Subjective Subjective Date Patient Seen: 10/06/24 Time Patient Seen: 14:25 Interval history: Feeling better today. Has passed some gas. Exam Vital Signs (past 8 hours): - 10/06/24 06:30 10/06/24 06:45 10/06/24 07:00 Temperature 98.3 F Pulse Rate 103 H 111 H Blood Pressure Pulse Oximetry 94 92 Oxygen Delivery Method 10/06/24 07:30 10/06/24 08:00 10/06/24 08:00 Temperature Pulse Rate 113 H 113 H Blood Pressure 128/79 Pulse Oximetry 95 94 Oxygen Delivery Method 10/06/24 08:00 10/06/24 08:30 10/06/24 09:00 Temperature 98.3 F Pulse Rate 114 H Blood Pressure Pulse Oximetry 92 Oxygen Delivery Method Room Air 10/06/24 09:00 10/06/24 09:30 10/06/24 10:00 Temperature Pulse Rate 112 H 112 H 110 H Blood Pressure Pulse Oximetry 93 91 92 Oxygen Delivery Method 10/06/24 10:00 10/06/24 10:30 10/06/24 11:00 Temperature Pulse Rate 120 H 111 H Blood Pressure 136/77 Pulse Oximetry 93 92 Oxygen Delivery Method 10/06/24 11:30 10/06/24 12:00 10/06/24 12:00 Temperature Pulse Rate 121 H 121 H Blood Pressure Pulse Oximetry 93 95 Oxygen Delivery Method Room Air 10/06/24 12:00 10/06/24 12:30 10/06/24 13:00 Temperature Pulse Rate 116 H 118 H Blood Pressure 128/79 Pulse Oximetry 93 93 Oxygen Delivery Method 10/06/24 13:00 Temperature 97.5 F L Pulse Rate Blood Pressure Pulse Oximetry Oxygen Delivery Method Oxygen Delivery Method Room Air Oxygen Flow Rate 0 Narrative Exam Narrative: Abdomen is soft Incision clean dry and intact Objective Labs 10/05/24 19:29 10/05/24 19:29 Labs: Laboratory Results - last 24 hr 10/04/24 10/05/24 10/05/24 08:25 19:29 20:38 WBC 9.3 RBC 4.30 L Hgb 12.3 L Hct 35.4 L MCV 82.4 MCH 28.7 MCHC 34.9 RDW 13.8 Plt Count 280 Neut % (Auto) Not Reportable Lymph % (Auto) Not Reportable [place] % (Auto) Not Reportable Eos % (Auto) Not Reportable Baso % (Auto) Not Reportable Lymph # (Auto) Not Reportable [place] # (Auto) Not Reportable Baso # (Auto) Not Reportable Total Counted 100 Seg Neutrophils % 60.0 D Band Neutrophils % 14.0 H Lymphocytes % (Manual) 19.0 L Monocytes % (Manual) 5.0 Eosinophils % (Manual) 1.0 L Metamyelocytes % 1.0 H Neutrophils # (Manual) 6882 H RBC Morphology Normal morphology Smear Path Review Sodium 132 L Potassium 3.9 Chloride 92 L Carbon Dioxide 32 BUN 24 H Creatinine 0.89 Estimated GFR > 60 BUN/Creatinine Ratio 27.0 H Glucose 108 H POC Whole Bld Glucose 113 H Lactate 0.8 Calcium 8.7 10/06/24 10/06/24 10/06/24 01:29 09:05 13:18 WBC RBC Hgb Hct MCV MCH MCHC RDW Plt Count Neut % (Auto) Lymph % (Auto) [place] % (Auto) Eos % (Auto) Baso % (Auto) Lymph # (Auto) [place] # (Auto) Baso # (Auto) Total Counted Seg Neutrophils % Band Neutrophils % Lymphocytes % (Manual) Monocytes % (Manual) Eosinophils % (Manual) Metamyelocytes % Neutrophils # (Manual) RBC Morphology Smear Path Review Sodium Potassium Chloride Carbon Dioxide BUN Creatinine Estimated GFR BUN/Creatinine Ratio Glucose POC Whole Bld Glucose 106 H 104 H 93 Lactate Calcium PFSH Social History household members: significant other and family alcohol intake: never Assessment & Plan Assessment and plan (1) Meckel's diverticulum: Status: Acute Plan Discontinue NG tube once he passes more gas and start clear liquid diet Time-Based Coding :: [TOTAL MINUTES] spent with patient and on the chart (including review of chart, obtaining history, exam, reviewing outside data, placing orders, documenting exam and treatment plan, and counseling patient) on [DATE]. PROFEE Process Trainer Document charge(s): No
[2024-10-06 16:05] LABS: Lactate (Lactic Acid) 0.6 mmol/L (0.7-2.1)
--- NOTE | 2024-10-06 16:32 | PC.NURSE ---
PT REMAINED A/OX4 ON ROOM AIR THROUGHOUT SHIFT. MULTIPLE FAMILY MEMBERS IN TO VISIT. PAIN WELL CONTROLLED. SEE EMAR FOR PAIN MEDS. DR NATARAJAN/ DR RAE ROUNDED EARLY. DRESSING REMOVED BY . AT 1036, PT STATED HE HAS PASSED FLATUS X3. OGT CLAMPED. 1107 PT C/O NAUSEA, OG UNCLAMPED AND RECONNECTED TO SUCTION. 1432 CLAMPED NG TUBE AGAIN. [address] LUIS OF PT TOLERATING NGT CLAMPED. STATES OK TO D/C NGT AND ORDER CLD. PT REQUESTING NGT BE LEFT IN AT THIS TIME. MD AWARE. CLD ORDERED. NO CONCERNS FROM PATIENT AT THIS TIME. STATES HE IS STILL PASSING GAS.
--- NOTE | 2024-10-06 17:26 | PC.NURSE ---
PT STATES HE WAS ABLE TO HAVE BOWEL MOVEMENT IN BATHROOM TOILET BUT FLUSHED ON ACCIDENT. DESCRIBED LARGE/ SOFT. VOIDED AT THIS TIME WELL BUT ACCIDENTALLY KNOCKED OVER URINAL. UNABLE TO RECORD OUTPUT. NO FURTHER COMPLAINTS OF NAUSEA. WILLING TO REMOVED NGT AT THIS TIME. REQUESTING TO ATTEMPT MEAL FIRST.
[2024-10-06] MEDS: ONDANSETRON 4 MG/2 ML INJ IV ×2 (18:49→22:07)
--- NOTE | 2024-10-06 19:27 | PC.NURSE ---
PT TOLERATED DINNER. PT HAD ANOTHER BM/VOID. REQUESTING NGT OUT. NGT D/C'D. TOLERATED WELL. NO C/O NAUSEA.
[2024-10-07] VITALS (31 sets, daily range): BP systolic 114–147; BP diastolic 65–85; PULSE 108–122; TEMP 36.4–39.6; O2SAT 91–96
[2024-10-07] MEDS: HYDROMORPHONE 2 MG INJ IV ×6 (00:09→22:18)
--- NOTE | 2024-10-07 00:09 | EKG_ITS ---
[address] [address] Test Date: 2024-10-07 Pat Name: Ranger Villavicencio Department: Room: 230 Gender: Male Delivery Analyst: MEE : 2005 Requested By: Order Number: [id number] Reading MD: Aftab Hutson Measurements Intervals [place] Rate: 146 P: 45 AR: 120 QRS: 48 QRSD: 106 T: -24 QT: 286 QTc: 445 Interpretive Statements Critical Test Result: High HR Sinus tachycardia Possible Left atrial enlargement Cannot rule out Inferior infarct , age undetermined Electronically Signed On 10-07-2024 18:05:22 PDT by Aftab Hutson
[2024-10-07 01:15] LABS: Add Manual Diff / Slide Review NO; Hematocrit 33.4 % (41-53); Hemoglobin 11.5 g/dL (13.5-17.5); Lymphocytes Absolute Auto 400 /uL (1100-4500); Mean Corpuscular HGB Conc 34.4 % (30-36); Mean Corpuscular Hemoglobin 28.4 PG (26-34); Mean Corpuscular Volume 82.7 fL (80-100); Platelet Count 278 X10^3/uL (150-400)
[2024-10-07 01:33] LABS: Lactate (Lactic Acid) 1.1 mmol/L (0.7-2.1)
[2024-10-07 01:34] LABS: Blood Urea Nitrogen 19 mg/dL (9-20); Calcium 8.2 mg/dL (8.4-10.2); Carbon Dioxide 24 mmol/L (22-32); Chloride 100 mmol/L (98-107); Estimated Glomerular Filt Rate > 60 mL/min (>60); Glucose 110 mg/dL (70-99); HEMOLYSIS < 15 (0-50); Potassium 3.5 mmol/L (3.4-5.1); Sodium 133 mmol/L (137-145)
[2024-10-07] MEDS: ACETAMINOPHEN IV 1,000 MG/100 ML VIAL 400 MG IV (03:33)
[2024-10-07] MEDS: ONDANSETRON 4 MG/2 ML INJ IV ×2 (04:13→19:49)
[2024-10-07] MEDS: PIPERACILLIN/TAZO 4.5 GM in SODIUM CHLORIDE 0.9% 100 ML IV ×3 (06:39→22:18)
[2024-10-07 08:07] LABS: Hematocrit 32.8 % (41-53); Hemoglobin 11.0 g/dL (13.5-17.5); Mean Corpuscular HGB Conc 33.7 % (30-36); Mean Corpuscular Hemoglobin 27.9 PG (26-34); Mean Corpuscular Volume 83.0 fL (80-100); Platelet Count 277 X10^3/uL (150-400)
[2024-10-07 08:08] LABS: Add Manual Diff / Slide Review YES
[2024-10-07 08:13] LABS: Alanine Aminotransferase 60 IU/L (<50); Albumin 3.1 g/dL (3.5-5.0); Albumin Globulin Ratio 1.1 (1.0-2.8); Alkaline Phosphatase 105 U/L (38-126); Blood Urea Nitrogen 14 mg/dL (9-20); Calcium 8.2 mg/dL (8.4-10.2); Carbon Dioxide 27 mmol/L (22-32); Chloride 98 mmol/L (98-107); Estimated Glomerular Filt Rate > 60 mL/min (>60); Globulin 2.9 g/dL (1.7-4.1); Glucose 107 mg/dL (70-99); HEMOLYSIS < 15 (0-50); Potassium 3.8 mmol/L (3.4-5.1); Sodium 133 mmol/L (137-145); Total Protein 6.0 g/dL (6.3-8.2)
--- NOTE | 2024-10-07 08:47 | PM.PN.1 ---
Subjective Subjective Interval history: Overnight events: He had a fever and rigors overnight. He was some left lower quadrant abdominal pain. S: He was had multiple loose bowel movements overnight. He was left lower quadrant tenderness. He denies a cough or dyspnea. He was mildly tachycardic. Exam Vital Signs (past 8 hours): - 10/07/24 01:00 10/07/24 01:00 10/07/24 01:30 Temperature 103.2 F H Pulse Rate Blood Pressure Pulse Oximetry Oxygen Delivery Method Oxygen Flow Rate 0 0 10/07/24 02:00 10/07/24 02:30 10/07/24 02:40 Temperature 103.0 F H Pulse Rate Blood Pressure Pulse Oximetry Oxygen Delivery Method Oxygen Flow Rate 0 0 10/07/24 03:00 10/07/24 03:30 10/07/24 04:00 Temperature Pulse Rate Blood Pressure Pulse Oximetry Oxygen Delivery Method Oxygen Flow Rate 0 0 0 10/07/24 04:00 10/07/24 04:10 10/07/24 04:30 Temperature 100.0 F H Pulse Rate Blood Pressure Pulse Oximetry Oxygen Delivery Method Room Air Oxygen Flow Rate 0 10/07/24 05:00 10/07/24 08:00 10/07/24 08:06 Temperature 100.0 F H Pulse Rate 108 H Blood Pressure Pulse Oximetry 91 Oxygen Delivery Method Room Air Oxygen Flow Rate 10/07/24 08:06 Temperature 99.4 F Pulse Rate 119 H Blood Pressure 118/76 Pulse Oximetry Oxygen Delivery Method Oxygen Flow Rate Oxygen Delivery Method Room Air Oxygen Flow Rate 0 Narrative Exam Narrative: NAD, alert and oriented. Fluent speech. Lungs are clear, normal rate and effort. Heart is regular, no murmur gallop or rub. Abdomen is soft, non distended. Extremities are free of edema. Objective Labs 10/07/24 07:55 10/07/24 07:55 Labs: Laboratory Results - last 24 hr 10/04/24 10/06/24 10/06/24 08:25 00:40 09:05 WBC 5.8 RBC 4.04 L Hgb 11.5 L Hct 33.4 L MCV 82.7 MCH 28.4 MCHC 34.4 RDW 13.8 Plt Count 278 Neut % (Auto) 92.2 H D Lymph % (Auto) 6.8 L [place] % (Auto) 0.6 L Eos % (Auto) 0.4 L Baso % (Auto) 0.0 Neut # (Auto) 5400 Lymph # (Auto) 400 L [place] # (Auto) 0 Eos # (Auto) 0 Baso # (Auto) 0 Smear Path Review Sodium 133 L Potassium 3.5 Chloride 100 Carbon Dioxide 24 BUN 19 Creatinine 0.76 Estimated GFR > 60 BUN/Creatinine Ratio 25.0 H Glucose 110 H POC Whole Bld Glucose 104 H Lactate 1.1 Calcium 8.2 L Total Bilirubin AST ALT Alkaline Phosphatase Total Protein Albumin Globulin Albumin/Globulin Ratio 10/06/24 10/06/24 10/07/24 13:18 15:45 07:55 WBC 11.2 H D RBC 3.95 L Hgb 11.0 L Hct 32.8 L MCV 83.0 MCH 27.9 MCHC 33.7 RDW 13.3 Plt Count 277 Neut % (Auto) Not Reportable Lymph % (Auto) Not Reportable [place] % (Auto) Not Reportable Eos % (Auto) Not Reportable Baso % (Auto) Not Reportable Neut # (Auto) Lymph # (Auto) Not Reportable [place] # (Auto) Not Reportable Eos # (Auto) Baso # (Auto) Not Reportable Smear Path Review Sodium 133 L Potassium 3.8 Chloride 98 Carbon Dioxide 27 BUN 14 Creatinine 0.79 Estimated GFR > 60 BUN/Creatinine Ratio 17.7 Glucose 107 H POC Whole Bld Glucose 93 Lactate 0.6 L Calcium 8.2 L Total Bilirubin 1.6 H AST 74 H ALT 60 H Alkaline Phosphatase 105 Total Protein 6.0 L Albumin 3.1 L Globulin 2.9 Albumin/Globulin Ratio 1.1 [facility] Social History household members: significant other and family alcohol intake: never Assessment & Plan Assessment & Plan narrative: 1. SBO status post surgery with postoperative ileus, active and improving. 2. Family history of factor 5 laden, stable. 3. New fever and rigors. The concern for postoperative pneumonia or intra-abdominal abscess. PLAN: -continue Zosyn -discussed with surgeon, we will order a CT of the abdomen and pelvis this morning. Time-Based Coding :: [TOTAL MINUTES] spent with patient and on the chart (including review of chart, obtaining history, exam, reviewing outside data, placing orders, documenting exam and treatment plan, and counseling patient) on [DATE].
--- NOTE | 2024-10-07 09:14 | P.PN_ITS ---
Subjective Subjective Date Patient Seen: 10/07/24 Time Patient Seen: 09:15 Interval history: The patient is feeling better today. He had the NG tube pulled last night and is tolerating clear liquids so far. He is having diarrhea at the at the present. He did have a fever last night. Exam Vital Signs (past 8 hours): - 10/07/24 01:30 10/07/24 02:00 10/07/24 02:30 Temperature Pulse Rate Blood Pressure Pulse Oximetry Oxygen Delivery Method Oxygen Flow Rate 0 0 0 10/07/24 02:40 10/07/24 03:00 10/07/24 03:30 Temperature 103.0 F H Pulse Rate Blood Pressure Pulse Oximetry Oxygen Delivery Method Oxygen Flow Rate 0 0 10/07/24 04:00 10/07/24 04:00 10/07/24 04:10 Temperature 100.0 F H Pulse Rate Blood Pressure Pulse Oximetry Oxygen Delivery Method Room Air Oxygen Flow Rate 0 10/07/24 04:30 10/07/24 05:00 10/07/24 08:00 Temperature 100.0 F H Pulse Rate Blood Pressure Pulse Oximetry Oxygen Delivery Method Room Air Oxygen Flow Rate 0 10/07/24 08:06 10/07/24 08:06 Temperature 99.4 F Pulse Rate 108 H 119 H Blood Pressure 118/76 Pulse Oximetry 91 Oxygen Delivery Method Oxygen Flow Rate Oxygen Delivery Method Room Air Oxygen Flow Rate 0 Narrative Exam Narrative: Patient is alert and oriented Lungs showed diminished sounds in the bases and are clear Cardiac reveals a rapid rate and regular rhythm Abdomen is much less distended, soft, nontender with hypoactive high-pitched bowel sounds. Incision is clean without induration, erythema, discharge, or ecchymosis. Objective Labs 10/07/24 07:55 10/07/24 07:55 Labs: Laboratory Results - last 24 hr 10/04/24 10/06/24 10/06/24 08:25 00:40 13:18 WBC 5.8 RBC 4.04 L Hgb 11.5 L Hct 33.4 L MCV 82.7 MCH 28.4 MCHC 34.4 RDW 13.8 Plt Count 278 Neut % (Auto) 92.2 H D Lymph % (Auto) 6.8 L [place] % (Auto) 0.6 L Eos % (Auto) 0.4 L Baso % (Auto) 0.0 Neut # (Auto) 5400 Lymph # (Auto) 400 L [place] # (Auto) 0 Eos # (Auto) 0 Baso # (Auto) 0 Smear Path Review Sodium 133 L Potassium 3.5 Chloride 100 Carbon Dioxide 24 BUN 19 Creatinine 0.76 Estimated GFR > 60 BUN/Creatinine Ratio 25.0 H Glucose 110 H POC Whole Bld Glucose 93 Lactate 1.1 Calcium 8.2 L Total Bilirubin AST ALT Alkaline Phosphatase Total Protein Albumin Globulin Albumin/Globulin Ratio 10/06/24 10/07/24 15:45 07:55 WBC 11.2 H D RBC 3.95 L Hgb 11.0 L Hct 32.8 L MCV 83.0 MCH 27.9 MCHC 33.7 RDW 13.3 Plt Count 277 Neut % (Auto) Not Reportable Lymph % (Auto) Not Reportable [place] % (Auto) Not Reportable Eos % (Auto) Not Reportable Baso % (Auto) Not Reportable Neut # (Auto) Lymph # (Auto) Not Reportable [place] # (Auto) Not Reportable Eos # (Auto) Baso # (Auto) Not Reportable Smear Path Review Sodium 133 L Potassium 3.8 Chloride 98 Carbon Dioxide 27 BUN 14 Creatinine 0.79 Estimated GFR > 60 BUN/Creatinine Ratio 17.7 Glucose 107 H POC Whole Bld Glucose Lactate 0.6 L Calcium 8.2 L Total Bilirubin 1.6 H AST 74 H ALT 60 H Alkaline Phosphatase 105 Total Protein 6.0 L Albumin 3.1 L Globulin 2.9 Albumin/Globulin Ratio 1.1 [facility] Social History household members: significant other and family alcohol intake: never Assessment & Plan Assessment and plan (1) Hyperkalemia: Status: Acute (2) Sinus tachycardia: Status: Acute (3) Meckel's diverticulum: Status: Acute (4) Small bowel obstruction: Status: Acute Plan Portal the patient had a fever last night. His white count is up to 11 4. After discussion with the hospitalist we will plan in CT of the abdomen and pelvis with IV contrast. His medications have been switched to oral but we will stop his Tylenol for now. Toradol has been stopped and I will therefore add Celebrex 200 mg p.o. b.i.d.. I have strongly encouraged the patient to ambulate in the halls and work on his incentive spirometer. Time-Based Coding :: [TOTAL MINUTES] spent with patient and on the chart (including review of chart, obtaining history, exam, reviewing outside data, placing orders, documenting exam and treatment plan, and counseling patient) on [DATE]. PROFEE Web Application Dev Specialist Document charge(s): Yes
[2024-10-07] MEDS: HYDROMORPHONE 1 MG INJ IV ×4 (09:18→17:22)
--- NOTE | 2024-10-07 09:25 | DI.CT.S_ITS ---
PROCEDURE: CT ABDOMEN PELVIS W CON INDICATIONS: fever TECHNIQUE: After the administration of intravenous contrast, axial sections acquired from the lung bases to the pubic symphysis. Coronal and sagittal reformats were performed. For radiation dose reduction, the following was used: automated exposure control, adjustment of mA and/or kV according to patient size. COMPARISON: [facility], CT, CT ABDOMEN PELVIS W CON, 10/01/2024, 19:42. FINDINGS: Image quality: Diagnostic. Lower Chest: The diaphragms are both moderately elevated, and there is patchy alveolar consolidation at each lung base considered more likely to represent patchy atelectasis than pneumonia.. ABDOMEN: A scant right pleural effusion is noted Liver: No solid mass. Gallbladder: No radiopaque gallstones or wall thickening. Biliary ducts: No biliary dilation. Pancreas: No ductal dilation. Spleen: Size is within normal limits. Adrenal Glands: No adrenal nodules. Kidneys and Ureters: No hydronephrosis. No solid mass. No complex renal cystic lesion which requires follow up. Stomach and Bowel: Normal colonic caliber, without significant wall thickening. Worsening generalized small bowel dilatation and a new finding of gastric fluid distension is now present. A new enteric staple line is seen at the right lower abdomen and cutaneous doyle with midline abdominal and upper pelvic incision is now seen with reference to the preoperative 10/01/24 study. Peritoneum: There has been interval development of a mild degree of abnormal intraperitoneal fluid. No free air. Ventral Wall: No significant ventral hernia. Abdominal Nodes: No retroperitoneal or mesenteric adenopathy by size criteria. Vessels: Aorta and inferior vena cava are normal in size. PELVIS: Pelvic Organs: Unremarkable. Bladder: No bladder wall thickening, accounting for underdistention. Pelvic Nodes: No enlarged lymph nodes. Miscellaneous: No inguinal hernias are seen. The small bowel fluid distension extends into the pelvis but the far distal ileum is not dilated. A normal appendix is found at the right lower quadrant. Bones: No aggressive osseous abnormality. IMPRESSION: 1. Intervening surgery, worsening small bowel dilatation to a mild degree. Right lower abdomen enteric staple line is a new finding. No free air found. Minimal postoperative peritoneal free fluid has developed. 2. No abscess found. Normal appendix identified. Elevation of each hemidiaphragm, patchy mid and lower lung presumed atelectasis has developed. Dictated by: Lit Viramontes M.D. on 10/07/2024 at 10:38 Approved by: Lit Viramontes M.D. on 10/07/2024 at 11:11
--- NOTE | 2024-10-07 09:30 | PC.NURSE ---
09[address] DR RAE AND DR CUENCA AT BEDSIDE REVIEWING PATIENT/ DISCUSSING POC. AWARE OF PT WITH SPIKED TEMP TO 103F OVERNIGHT, TACHYCARDIC, AND ELEVATED LIVER ENZYMES. MD'S TO ORDER ABD CT SCAN. DR CUENCA REQUESTING PT UP out OF BED/ WALKING AROUnND UNIT TODAY. PT EDUCATED ON IMPORTANCE OF INCENTIVE SPIROMETER. STATES HE WILL PLAN TO DO [address] CALLED TO TAKE PATIENT. CARE ONGOING.
[2024-10-07] MEDS: CELECOXIB 200 MG CAPSULE PO ×2 (10:20→22:18)
[2024-10-07 10:54] LABS: Band Neutrophils Percent 26.0 % (3-7); Lymphocytes Percent Manual 11.0 % (25-45); Monocytes Percent Manual 9.0 % (2-11); Neutrophils Absolute Manual 8960 /uL (3000-5900); Segmented Neutrophils Percent 54.0 % (38-70); Total Cells Counted 100
[2024-10-07 10:57] LABS: RBC Morphology Normal Morphology
--- NOTE | 2024-10-07 15:16 | CM.DPC ---
DCP Cont: Per Surgeon and MD, pt making slow progress and had more flatus and NGT able to be discontinued and see how pt tolerates slowly advancing diet. Overnight pt had fever with riggers but improved today. SW observed pt walking halls slowly with FWW for balance and supportive family bedside. Erika Mason MSW
[2024-10-07] MEDS: OXYCODONE IR 10 MG TABLET PO (16:33)
[2024-10-07 17:47] LABS: Lactate (Lactic Acid) 0.9 mmol/L (0.7-2.1)
--- NOTE | 2024-10-07 18:34 | PC.NURSE ---
PT REMAINED A/OX4 TODAY, TACHYCARDIC IN 100S THROUGHOUT SHIFT. PLACED ON 1L NC WHEN ASLEEP. TMAX 100.2F. GIVEN ICE PACKS. TEMP DOWN TO 97.7F. REQUIRING FREQUENT PAIN MED ADMINISTRATION. SEE EMAR FOR PAIN MEDS GIVEN. REQUESTED PO PAIN MED TO HELP WITH PAIN MANAGEMENT. DR RAE/ BANG ROUNDED ON PATIENT EARLY. SEE NOTES. CT SCAN ORDERED AND DONE. MADE BOTH MD'S AWARE OF RESULTS BACK. DR CUENCA REQUESTING PT WALK AROUND UNIT/ USE INCENTIVE SPIROMETER. PT WALKED LAP AROUND UNIT AND HAS BEEN USING IS 10 PER HOUR. EDUCATED ON IMPORTANCE. PT HAD 5-6 LOOSE BMS TODAY. TOLERATING CLD. NO NAUSEA OR VOMITING PT VISITED WITH FAMILY. FAMILY UPDATED ON PLAN OF CARE. PT CURRENTLY TAKING SHOWER WITH ASSISTANCE OF GIRLFRIEND AT THIS TIME. CARE ONGOING. LAB IN [place] CALLED REGARDING A LOCATION OF BIOPSY SENT TO THEM. . GAVE LAB DR. CUENCA'S PHONE NUMBER. STATED THEY WILL REACH OUT TO HIM.
[2024-10-08] VITALS (15 sets, daily range): BP systolic 121–154; BP diastolic 65–98; PULSE 100–105; RESP 18; TEMP 36.5–36.9; O2SAT 96–99
[2024-10-08] MEDS: OXYCODONE IR 10 MG TABLET PO ×2 (00:05→09:12)
[2024-10-08] MEDS: HYDROMORPHONE 2 MG INJ IV ×3 (00:06→05:39)
[2024-10-08] MEDS: ONDANSETRON 4 MG/2 ML INJ IV ×2 (00:07→05:39)
[2024-10-08] MEDS: PIPERACILLIN/TAZO 4.5 GM in SODIUM CHLORIDE 0.9% 100 ML IV (05:39)
[2024-10-08] MEDS: CELECOXIB 200 MG CAPSULE PO ×2 (09:08→21:02)
--- NOTE | 2024-10-08 10:29 | P.PN_ITS ---
Subjective Subjective Date Patient Seen: 10/08/24 Time Patient Seen: 10:29 Interval history: Patient is doing well and tolerating a clear liquid diet. He is still having loose stools and is passing flatus. Exam Vital Signs (past 8 hours): - 10/08/24 03:00 10/08/24 04:00 10/08/24 05:00 Temperature Blood Pressure 126/74 129/80 123/75 Oxygen Delivery Method 10/08/24 06:00 10/08/24 07:00 10/08/24 07:00 Temperature Blood Pressure 134/78 126/70 Oxygen Delivery Method Room Air 10/08/24 08:00 10/08/24 08:00 Temperature 98.4 F Blood Pressure 136/70 Oxygen Delivery Method Oxygen Delivery Method Room Air Oxygen Flow Rate 1 Narrative Exam Narrative: Alert and oriented x3 Neck is supple Chest is clear bilaterally but diminished in the bases. Cardiac reveals a rapid rate and regular rhythm Abdomen is soft, nontender, with active bowel sounds Incision is clean without induration erythema or discharge Extremities reveal full range of motion with minimal edema. Objective Labs 10/07/24 07:55 10/07/24 07:55 Labs: Laboratory Results - last 24 hr 10/07/24 10/07/24 07:55 17:20 Total Counted 100 Seg Neutrophils % 54.0 Band Neutrophils % 26.0 H Lymphocytes % (Manual) 11.0 L Monocytes % (Manual) 9.0 Neutrophils # (Manual) 8960 H Platelet Estimate Adequate on smear Plt Morphology Comment RBC Morphology Normal morphology Lactate 0.9 PFSH Social History household members: significant other and family alcohol intake: never Assessment & Plan Assessment and plan (1) Hyperkalemia: Status: Acute (2) Sinus tachycardia: Status: Acute (3) Meckel's diverticulum: Status: Acute (4) Small bowel obstruction: Status: Acute Plan Will advance diet to regular. We will also switch pain medication over to oral. Continue to encourage ambulation as well as vigorous pulmonary toilet. Time-Based Coding :: [TOTAL MINUTES] spent with patient and on the chart (including review of chart, obtaining history, exam, reviewing outside data, placing orders, documenting exam and treatment plan, and counseling patient) on [DATE]. PROFEE Clinical Nursing Manager Document charge(s): Yes
[2024-10-08] MEDS: HYDROMORPHONE 2 MG TABLET PO ×4 (12:30→21:02)
--- NOTE | 2024-10-08 12:48 | PM.PN.1 ---
Subjective Subjective Interval history: Summary: He presented with a bowel obstruction required surgery and had a postoperative ileus. This is now improving dramatically. He was advancing to a normal diet today as having bowel movements. He underwent exploratory laparotomy with small-bowel resection we will related to a Meckel's diverticulum and adhesion on October 02. Subjective: No pain or nausea, he was hungry and much more energetic. He was having loose stools. Exam Vital Signs (past 8 hours): - 10/08/24 05:00 10/08/24 06:00 10/08/24 07:00 Temperature Blood Pressure 123/75 134/78 Oxygen Delivery Method Room Air 10/08/24 07:00 10/08/24 08:00 10/08/24 08:00 Temperature 98.4 F Blood Pressure 126/70 136/70 Oxygen Delivery Method Oxygen Delivery Method Room Air Oxygen Flow Rate 1 Narrative Exam Narrative: NAD, alert and oriented. Fluent speech. Lungs are clear, normal rate and effort. Heart is regular, no murmur gallop or rub. Abdomen is soft, non distended. Incision is unremarkable. Extremities are free of edema. Objective Labs 10/07/24 07:55 10/07/24 07:55 Labs: Laboratory Results - last 24 hr 10/07/24 17:20 Lactate 0.9 PFSH Social History household members: significant other and family alcohol intake: never Assessment & Plan Assessment & Plan narrative: 1. Meckel's diverticulum and SBO with adhesion, status post surgical repair and limited small-bowel resection, present on admission and active. 2. SBO, resolved. 3. Postoperative ileus, improved. 4. Family history of factor 5 Leiden. PLAN: -ambulate -advance diet to regular -possible discharge on October 09. -discussed with surgeon [id number]. Time-Based Coding :: [TOTAL MINUTES] spent with patient and on the chart (including review of chart, obtaining history, exam, reviewing outside data, placing orders, documenting exam and treatment plan, and counseling patient) on [DATE].
--- NOTE | 2024-10-08 12:49 | CM.DPNOTE ---
DCP Continued: Reviewed EMR and team rounds for pt?s medical status. Per Surgeon and MD, pt making slow progress and had more flatus, advanced to Full diet. Per rounds, No new discharge needs identified at this time. Plan: Anticipating dc home with family on 10/09 or when medically cleared. CM Team will continue to follow for coordination of discharge plans. PAYTON Hayes
--- NOTE | 2024-10-08 13:31 | DIET.PN1 ---
Dietary Progress Note Assessment: Diet advanced to regular. Will monitor for tolerance and % PO intakes. Ht: 193.04 cm Wt: 133.81 kg BMI: 36.7 UBW: Last BM: 10/07/24 (10/07/24 17:09) MNA: 9 Neri Score: 17 Diet: 10/07/24 Dinner caregiver tray [Courtesy Tray (Peds, comfort care)] Diet Modifications: 10/08/24 Lunch General (Regular) Diet Diet Modifications: Food Texture: Level 7 - Regular Liquid Consistency: Level 0 - Thin Nutrition Percent Meal Consumed 100% 10/08/24 09:00 Percent Meal Consumed 50 10/06/24 19:27 Labs: RBC 3.95 X10^6/uL (4.5-5.9) L 10/07/24 07:55 Hgb 11.0 g/dL (13.5-17.5) L 10/07/24 07:55 Hct 32.8 % (41-53) L 10/07/24 07:55 Creatinine 0.79 mg/dL (0.66-1.25) 10/07/24 07:55 Lactate 0.9 mmol/L (0.7-2.1) 10/07/24 17:20 Electronically Signed by: Rochelle Grayson 10/08/24 13:31 Clinical Dietitian [address] [address]
[2024-10-08 15:23] LABS: Lactate (Lactic Acid) 0.7 mmol/L (0.7-2.1)
[2024-10-08] MEDS: ACETAMINOPHEN 325 MG TABLET 650 MG PO (16:23)
[2024-10-09] MEDS: HYDROMORPHONE 2 MG TABLET PO ×4 (00:27→10:28)
[2024-10-09 00:30] VITALS: O2SAT 93
[2024-10-09 00:31] VITALS: BP 124/77; PULSE 105; O2SAT 96
[2024-10-09 08:00] VITALS: BP 128/81; PULSE 104; RESP 14; TEMP 36.4; O2SAT 97
--- NOTE | 2024-10-09 08:26 | PM.DS.1 ---
History of Present Illness History of Present Illness Date Patient Seen: 10/09/24 Chief complaint: abd px, elevated hr, sweating,n/v Narrative: 19-year-old male who had abdominal pain on the 30 of September came into the emergency room the next morning findings at the time significant for a high-grade small-bowel obstruction. In the emergency department symptoms of emesis were relieved with NGT without suctioned NG tube was removed and patient was observed. Decision was made within 24 hours for operative intervention findings indicated for Meckel's diverticulum. Postoperative course characterized by ileus. Consultation for internal medicine consultation placed today. Patient reports abdominal discomfort is NPO Patient demonstrates signs of tachycardia diaphoresis findings of CT of the chest and upper parts of the abdomen demonstrated significant volume of bile in the stomach that was drained by NG tube. Laboratory evaluation demonstrates white count of 4.7 with 14% neutrophils and 41% band forms with toxic granulation and vacuolization. Discharge Providers Provider Date of admission: 10/02/24 21:26 Discharge Date: 10/09/24 Consults: 10/02/24 21:27 Consult to Discharge Planning Routine Comment: Discharge provider: Good Martell MD Summary Hospital Course Hospital Course: 1. Meckel's diverticulum and SBO with adhesion, status post surgical repair and limited small-bowel resection 2. SBO, resolved. 3. Postoperative ileus, resolved. 4. Family history of factor 5 Leiden. 5. Elevated LFT Bowel function has returned. He is mobilizing. His doyle are intact and will be removed at surgical follow-up in 7-10 days. Hemodynamically stable. Mildly Elevated liver enzymes will need follow-up at PCP or surgeon's office soon. Status at Discharge Cognitive/behavioral status at discharge: oriented Functional status at discharge: independent ambulation Overall status at discharge: patient is back to baseline Exam Vital Signs (past 8 hours): - 10/09/24 00:30 10/09/24 00:31 10/09/24 00:31 Pulse Rate 105 H Blood Pressure 124/77 Pulse Oximetry 93 96 Oxygen Delivery Method Room Air Oxygen Flow Rate 0 Narrative Exam Narrative: Alert and oriented x3. No apparent distress. Heart is regular rate and rhythm without murmur. Lungs are clear to auscultation bilaterally. Extremities have no ankle edema. Abdomen has intact doyle on a midline incision, no drainage, no redness, no signs of dehiscence. Nontender. Bowel sounds active. Objective Labs 10/07/24 07:55 10/07/24 07:55 Labs: Laboratory Results - last 24 hr 10/08/24 15:00 Lactate 0.7 PFSH Social History household members: significant other and family alcohol intake: never Discharge Plan Discharge Plan Patient Disposition: Home Provider Discharge Comment: Ok to discharge home, follow up with Surgical services at [facility] Discharge orders & Medications Prescriptions: New celecoxib [Celebrex] 200 mg Capsule 200 mg PO BID Qty: 60 0RF hydromorphone 2 mg Tablet 2 mg PO Q3H PRN (Reason: Pain, Severe (7-10)) Qty: 20 0RF Discharge Health Status Multidrug resistant organism: No MDRO Diet/Activity/Treatments Diet: Regular Activity: as tolerated Skin/Wound/Dressing Care Report to your healthcare provider any signs of infection, such as:: chills, fever, night sweats, increased pain and unusual drainage Visit Report/Discharge Packet Instructions: DI for Prescription Opioid Use, [facility]: Wound Care Stand Alone Forms: Patient Portal/API, Stroke Signs & Symptoms, Surgery Discharge
[2024-10-09] MEDS: SODIUM CHLORIDE 0.9% FLUSH 10 ML IV (08:50)
[2024-10-09] MEDS: CELECOXIB 200 MG CAPSULE PO (08:50)
--- NOTE | 2024-10-09 09:48 | P.PN_ITS ---
Subjective Subjective Date Patient Seen: 10/09/24 Time Patient Seen: 09:49 Interval history: Patient is postop day 7. From an exploratory laparotomy with small-bowel resection due to a Meckel's diverticulum and small bowel obstruction. He is doing well and tolerating a regular diet. He states his stools are starting to firm up. Exam Vital Signs (past 8 hours): - 10/09/24 08:00 Temperature 97.6 F Pulse Rate 104 H Respiratory Rate 14 Blood Pressure 128/81 Pulse Oximetry 97 Oxygen Flow Rate 0 Oxygen Delivery Method Room Air Oxygen Flow Rate 0 Narrative Exam Narrative: Lungs are clear to auscultation bilaterally Cardiac reveals a rapid rate regular rhythm Abdomen is soft, nontender, with active bowel sounds Incision is clean without induration, erythema, discharge, or ecchymosis. Objective Labs 10/07/24 07:55 10/07/24 07:55 Labs: Laboratory Results - last 24 hr 10/08/24 15:00 Lactate 0.7 PFSH Social History household members: significant other and family alcohol intake: never Assessment & Plan Assessment and plan (1) Sinus tachycardia: Status: Acute (2) Meckel's diverticulum: Status: Acute (3) Small bowel obstruction: Status: Acute Plan We will discharge to home today. We will make arrangements for the patient follow up in the Surgical Clinic here in the next 7-10 days. Time-Based Coding :: [TOTAL MINUTES] spent with patient and on the chart (including review of chart, obtaining history, exam, reviewing outside data, placing orders, documenting exam and treatment plan, and counseling patient) on [DATE]. PROFEE Tank Truck Driver Document charge(s): Yes
== END 2024-10-09 10:55 | disposition home or self-care (01) | DRG 330 ==
LOC: AC 10-04 06:39 → ICU 10-04 06:55 → AC 10-04 06:57
PROVIDERS: Hospitalist; Internal Medicine; Admitting Provider Surgery Trauma Surgery; Referring Provider Surgery Trauma Surgery; Visit Provider Surgery Trauma Surgery
PROC: 0DB80ZZ Excision of Small Intestine, Open Approach (ICD-10-PCS; CPT 49000; principal; 2024-10-02 19:15)
DX: Q43.0 Meckel's diverticulum (displaced) (hypertrophic) (principal); K56.51 Intestinal adhesions [bands], with partial obstruction; K91.89 Other postprocedural complications and disorders of digestive system; K56.7 Ileus, unspecified; R18.8 Other ascites; R00.0 Tachycardia, unspecified; E87.5 Hyperkalemia; R50.9 Fever, unspecified; R74.01 Elevation of levels of liver transaminase levels; Z84.81 Family history of carrier of genetic disease
CPT/HCPCS: 36415; 71045; 71275; 74018; 74022; 74177; 80048; 80053; 81241; 82962; 83605; 85007; 85025; 87040; 87797; 93005; G0378; G0379; J0131; J0330; J1100; J1171; J1885; J2250; J2405; J2543; J2704; J3010; J3480; J3490; Q9967

== ENCOUNTER 2024-11-29 10:42 | Inpatient (IN) | payer OTHER, SELFPAY ==
--- NOTE | 2024-11-29 | DI.RAD.S_ITS ---
PROCEDURE: XR GASTROGRAFIN CHALLENGE COMPARISON: [facility], CT, CT ABDOMEN PELVIS W CON, 10/07/2024, 9:53. [facility], CR, XR GASTROGRAFIN CHALLENGE, 10/02/2024, 2:56. INDICATIONS: SBO FINDINGS: 240 cc Gastrografin administered orally. Patient reports bowel movement. At 4 hours there is oral contrast extending to the rectum. Multiple prominent loops of small bowel with persistent oral contrast. There is oral contrast in the stomach. IMPRESSION: Oral contrast reaches the rectum at the 4 hour time point. Persistent prominent loops of small bowel. Findings supporting resolving small-bowel obstruction or partial small bowel obstruction. Dictated by: Flavio Bryant M.D. on 11/29/2024 at 18:45 Approved by: Flavio Bryant M.D. on 11/29/2024 at 18:50
[2024-11-29 10:49] VITALS: BMI 35.2
--- NOTE | 2024-11-29 11:47 | P.HP_ITS ---
History of Present Illness History of Present Illness Date Patient Seen: 11/29/24 Chief complaint: Abd pain/ SBO Narrative: Patient presents with intermittent bowel pain and some nausea for last 7 days. He would 1 particular severe episode following raw carrots. He was status post surgery here several weeks ago for Meckel's diverticulum and bowel obstruction. This was an open laparotomy with a limited small-bowel resection. Did well for the 1st week postoperative and now has had stuttering symptoms with abdominal pain and some nausea for 7 days. He had a more severe episode this morning which prompted a visit to [facility]. There, CT scan was consistent with a possible bowel obstruction. He was discussed with our surgeon, and accepted in transfer. The patient does note that he has been having relatively normal bowel movements throughout the week although some have been loose. No abdominal distention has been reported. Surgery does recommended a Gastrografin challenge and this has been arranged. The patient was, and no apparent stress. Has no current abdominal pain or distention. [facility] Medical History Small bowel obstruction Sinus tachycardia Meckel's diverticulum Hyperkalemia Surgical History Anesthesia Bowel obstruction (~10/03/24) Family History Grandfather History of heart disease Grandmother No problems noted. Social History household members: significant other and family Smoking Status: Never smoker alcohol intake: never Meds Home Medications and Allergies Home Medications ?Medication ?Instructions ?Recorded ?Confirmed ?Type valacyclovir 1 gram tablet 2,000 mg PO BID PRN cold so res 11/29/24 11/29/24 History Allergies Allergy/AdvReac Type Severity Reaction Status Date / Time No Known Drug Allergies Allergy Verified 10/27/24 11:26 Review of Systems Review of Systems Narrative: All else reviewed and otherwise unremarkable except as noted in the history and physical. Exam Narrative Exam Narrative: NAD, alert and oriented, fluent speech, calm. Normocephalic skull, EOMI, anicteric sclera, symmetric pupils. Oropharynx unremarkable, no droop. Neck supple, midline trachea, no adenopathy. Lungs clear, normal rate and effort. Heart regular, no murmur gallop or rub. Abdomen is soft, non distended and non tender. Extremities are free of edema. Skin is free of rash or lesions. Joints are not swollen or deformed. Judgment appears to be normal. Assessment & Plan Assessment & Plan narrative: 1. SBO (likely partial), presnt on admission. 2. Recent surgery for Meckel's diverticulitis and adhesions status post a limited small-bowel resection. 3. Family history factor 5 Leiden. PLAN: -NPO, IV fluids. -analgesics. -surgical consult, Gastrograffin challenge. Time-Based Coding :: 35 min spent with patient and on the chart (including review of chart, obtaining history, exam, reviewing outside data, placing orders, documenting exam and treatment plan, and counseling patient) on 11/29. Quality VTE Deep Vein Thrombosis/Pulmonary Embolism Present on Admission: No MIPS - Admit I confirm the patient?s Advance Care Plan is present, Code status is documented, Surrogate decision maker is in patient?s record [If Yes, STOP here]: Yes MIPS - Meds 'Current medications' to include all prescriptions, [id number] products, herbals, cannabis/cannabidiol products, and vitamin/mineral/dietary (nutritional) supplements. I have utilized all available resources to obtain, update, or review the patient?s current medications. [If Yes, STOP here]: Yes
[2024-11-29 12:25] VITALS: BP 115/79; PULSE 102; RESP 20; TEMP 36.4; O2SAT 99
[2024-11-29] MEDS: SODIUM CHLORIDE 0.9% 1,000 ML 100 ML IV (12:31)
--- NOTE | 2024-11-29 15:21 | P.HP_ITS ---
History of Present Illness History of Present Illness Date Patient Seen: 11/29/24 Time Patient Seen: 03:30 Date of Onset of Symptoms: 11/22/24 Chief complaint: Abd pain/ SBO Narrative: Patient is a 19-year-old white male presents as a transfer from another hospital with abdominal pain which with a going on approximately 7 days states it is tender colicky comes and goes in waves a very few sec admits to nausea vomiting 1 episode denies any hematemesis patient states he has been having normal bowel movements at home this occurred after eating raw carrots. Patient is postop day number 57 exploratory laparotomy with resection of a Meckel's diverticulum with bowel obstruction associated with same. Patient states he had been doing well up until a week ago. No laboratory are done x-rays have not been pulled from the other hospital. Patient is undergoing a small-bowel follow-through with Gastrografin at this time. Allergies: NKDA Medications: Valacyclovir Past medical history review of systems: Obesity, history of a family factor 5 Leiden deficiency. Patient denies any other heart lungs digestive musculoskeletal neurological seizure disorder psychiatric problems risks are Infectious Disease HIV or AIDS. Past surgical history: Left inguinal hernia and hydrocele as a 3-year-old, postop day number 57 exploratory laparotomy with resection of a Meckel's diverticulum with stapled functional [id number] anastomosis Social history: Works for [employer] denies any tobacco alcohol or recreational drug usage. Vitals: Temperature is 97.5? pulse 102 respirations 20 BP is 115/79 SaO2 is 99% on room air. Patient is 6 ft 4 in tall 289 lb. Head is normocephalic eyes PERRLA EOMI is intact nares clear septum midline oropharyngeal cavity is in good repair oropharyngeal soft tissues are moist heart regular rate and rhythm without murmurs. Lungs are clear to auscultation we expiratory effort moderate chest wall motion noted. Was soft nondistended with active bowel sounds no guarding. Patient's incision is clear no signs of incision hernias with coughing straining or Valsalva. Musculoskeletal good muscle tone and strength equal bilaterally no gross deficits are elicited. Impression: Nausea vomiting with abdominal pain of [address] scan done at another hospital shows possible bowel obstruction Postop day number 57 exploratory laparotomy with resection of a Meckel's diverticulum with anastomosis Plan: Discussed with the patient the findings he is undergoing is a small-bowel follow-through with Gastrografin at this time we will try to obtain copies of the CT scan which were done at another hospital. Also will check baseline laboratory make sure there is no other source of problems. All questions were answered the patient's satisfaction we will await the results of the small-bowel follow-through if unable to visualize the CT scan we may need repeated. All questions were answered to patient's satisfaction. [facility] Medical History Small bowel obstruction Sinus tachycardia Meckel's diverticulum Hyperkalemia Surgical History Anesthesia Bowel obstruction (~10/03/24) Family History Grandfather History of heart disease Grandmother No problems noted. Social History household members: significant other and family Smoking Status: Never smoker alcohol intake: never Meds Home Medications and Allergies Home Medications ?Medication ?Instructions ?Recorded ?Confirmed ?Type valacyclovir 1 gram tablet 2,000 mg PO BID PRN cold so res 11/29/24 11/29/24 History Allergies Allergy/AdvReac Type Severity Reaction Status Date / Time No Known Drug Allergies Allergy Verified 10/27/24 11:26 Exam Vital Signs (past 8 hours): - 11/29/24 12:25 Temperature 97.5 F L Pulse Rate 102 H Respiratory Rate 20 Blood Pressure 115/79 Pulse Oximetry 99 Assessment & Plan Time-Based Coding :: [TOTAL MINUTES] spent with patient and on the chart (including review of chart, obtaining history, exam, reviewing outside data, placing orders, documenting exam and treatment plan, and counseling patient) on [DATE]. Quality VTE Deep Vein Thrombosis/Pulmonary Embolism Present on Admission: No IH PROFEE Swiss Type Screw Machine Operator Document charge(s): Yes
[2024-11-29 16:27] LABS: Add Manual Diff / Slide Review NO; Hematocrit 42.5 % (41-53); Hemoglobin 14.3 g/dL (13.5-17.5); Lymphocytes Absolute Auto 1900 /uL (1100-4500); Mean Corpuscular HGB Conc 33.6 % (30-36); Mean Corpuscular Hemoglobin 27.4 PG (26-34); Mean Corpuscular Volume 81.6 fL (80-100); Platelet Count 293 X10^3/uL (150-400)
[2024-11-29 16:50] LABS: Alanine Aminotransferase 21 IU/L (<50); Albumin 4.4 g/dL (3.5-5.0); Albumin Globulin Ratio 1.5 (1.0-2.8); Alkaline Phosphatase 75 U/L (38-126); Blood Urea Nitrogen 10 mg/dL (9-20); Calcium 9.4 mg/dL (8.4-10.2); Carbon Dioxide 24 mmol/L (22-32); Chloride 108 mmol/L (98-107); Estimated Glomerular Filt Rate > 60 mL/min (>60); Globulin 3.0 g/dL (1.7-4.1); Glucose 102 mg/dL (70-99); HEMOLYSIS < 15 (0-50); Potassium 4.0 mmol/L (3.4-5.1); Sodium 141 mmol/L (137-145); Total Protein 7.4 g/dL (6.3-8.2)
[2024-11-29 18:28] LABS: Clostridium difficile toxin AB Not Detected (Not Detect); Enteroaggregative E.coli Not Detected (Not Detect); Enteropathogenic E.coli Not Detected (Not Detect); Enterotoxigenic E.coli It/st Not Detected (Not Detect); Plesiomonsa shigelloides Not Detected (Not Detect); Shiga-like toxin-prod E.coli Not Detected (Not Detect)
[2024-11-29 19:00] VITALS: BP 133/91; PULSE 92; RESP 16; TEMP 36.6; O2SAT 99
[2024-11-30 06:14] LABS: Add Manual Diff / Slide Review NO; Hematocrit 39.8 % (41-53); Hemoglobin 13.6 g/dL (13.5-17.5); Lymphocytes Absolute Auto 1900 /uL (1100-4500); Mean Corpuscular HGB Conc 34.1 % (30-36); Mean Corpuscular Hemoglobin 27.7 PG (26-34); Mean Corpuscular Volume 81.0 fL (80-100); Platelet Count 274 X10^3/uL (150-400)
[2024-11-30 06:25] LABS: Blood Urea Nitrogen 9 mg/dL (9-20); Calcium 8.9 mg/dL (8.4-10.2); Carbon Dioxide 24 mmol/L (22-32); Chloride 106 mmol/L (98-107); Estimated Glomerular Filt Rate > 60 mL/min (>60); Glucose 103 mg/dL (70-99); HEMOLYSIS 17 (0-50); Potassium 3.8 mmol/L (3.4-5.1); Sodium 138 mmol/L (137-145)
[2024-11-30 08:00] VITALS: BP 129/91; PULSE 94; RESP 9; TEMP 36.6; O2SAT 97
[2024-11-30] MEDS: SODIUM CHLORIDE 0.9% FLUSH 10 ML IV (09:06)
--- NOTE | 2024-11-30 09:11 | PM.PN.IH.1 ---
Subjective Subjective Date Patient Seen: 11/30/24 Time Patient Seen: 08:30 Interval history: Patient is resting comfortably states he is having no further abdominal pain. The patient is tolerating diet well. Patient has had multiple bowel movements after the Gastrografin small-bowel follow-through but no signs of bowel obstruction was noted. The patient is desiring to go home. Morning laboratory shows WBC of 6.1 hemoglobin is 13.6 hematocrit is 39.8 platelets are 274,000 sodium is 138 potassium 3.8 chloride 106 bicarb is 24 BUN of 9 creatinine 0.71 random blood sugar is 103 normal LFTs. Small-bowel follow-through shows no signs of bowel obstruction. Vitals: Temperature is 97.8? pulse is 92 respirations 16 BP is 133/91 SaO2 is 99% on room air Heart regular rate and rhythm without murmurs lungs are clear to auscultation no rales rhonchi or wheezes noted abdomen is soft nondistended good active bowel sounds patient's incision is healing well no signs of infection inflammation or incisional hernias. Impression: Nausea vomiting abdominal pain postop day number 58 exploratory laparotomy with resection of Meckel's diverticulum with anastomosis Small-bowel follow-through shows no signs of small-bowel obstruction excellent transit time. Patient did have obstipation on CT scan from another hospital. Plan: Discharge as per hospitalist patient was told that he needs to stay on a high dietary fiber and he is 25-35 g of fiber a day may supplement with Metamucil. Discussed bowel habits dietary water all questions were answered patient's satisfaction return if any problems questions or concerns. May be discharged as per hospitalist the patient's satisfaction. Exam Vital Signs (past 8 hours): Oxygen Flow Rate 0 Objective Labs 11/30/24 05:42 11/30/24 05:42 Labs: Laboratory Results - last 24 hr 11/29/24 11/29/24 11/30/24 16:22 16:42 05:42 WBC 6.3 6.1 RBC 5.21 4.91 Hgb 14.3 13.6 Hct 42.5 39.8 L MCV 81.6 81.0 MCH 27.4 27.7 MCHC 33.6 34.1 RDW 13.7 13.8 Plt Count 293 274 Neut % (Auto) 60.1 57.9 Lymph % (Auto) 30.9 31.8 [place] % (Auto) 7.3 8.2 Eos % (Auto) 1.3 L 1.7 L Baso % (Auto) 0.4 0.4 Neut # (Auto) 3800 3500 Lymph # (Auto) 1900 1900 [place] # (Auto) 500 500 Eos # (Auto) 100 100 Baso # (Auto) 0 0 Sodium 141 138 Potassium 4.0 3.8 Chloride 108 H 106 Carbon Dioxide 24 24 BUN 10 9 Creatinine 0.75 0.71 Estimated GFR > 60 > 60 BUN/Creatinine Ratio 13.3 12.7 Glucose 102 H 103 H Calcium 9.4 8.9 Total Bilirubin 0.8 AST 24 ALT 21 Alkaline Phosphatase 75 Total Protein 7.4 Albumin 4.4 Globulin 3.0 Albumin/Globulin Ratio 1.5 Stl C. cayetanensis PCR Not detected Stool Rotavirus (PCR) Not detected Stool Adenovirus (PCR) Not detected Stool Astrovirus (PCR) Not detected Stool Cryptosporidium PCR Not detected Stl E.coli Shiga Tox PCR Not detected St Sh/Enteroin Ecoli PCR Not detected Stl Enterotoxigenic E PCR Not detected Stool EPEC (PCR) Not detected Stl E. histolytica PCR Not detected Stool Giardia Lamblia PCR Not detected Stool Sapovirus (PCR) Not detected Stl P. shigelloides PCR Not detected St Y.enterocolitica PCR Not detected Stool Vibrio (PCR) Not detected Stl Vibrio cholerae PCR Not detected Stl Enteroaggr Ecoli PCR Not detected Stl Norovirus GI/GII PCR Not detected Campylobacter (PCR) Not detected C. difficile Tox (PCR) Not detected Salmonella (PCR) Not detected [facility] Medical History Small bowel obstruction Sinus tachycardia Meckel's diverticulum Hyperkalemia Surgical History Anesthesia Bowel obstruction (~10/03/24) Family History Grandfather History of heart disease Grandmother No problems noted. Social History household members: significant other and family Smoking Status: Never smoker alcohol intake: never Assessment & Plan Time-Based Coding :: [TOTAL MINUTES] spent with patient and on the chart (including review of chart, obtaining history, exam, reviewing outside data, placing orders, documenting exam and treatment plan, and counseling patient) on [DATE]. Quality VTE Deep Vein Thrombosis/Pulmonary Embolism Present on Admission: No [facility] [employer] Document charge(s): Yes
--- NOTE | 2024-11-30 10:07 | PM.DS.1 ---
History of Present Illness History of Present Illness Chief complaint: Abd pain/ SBO Narrative: Patient presents with intermittent bowel pain and some nausea for last 7 days. He would 1 particular severe episode following raw carrots. He was status post surgery here several weeks ago for Meckel's diverticulum and bowel obstruction. This was an open laparotomy with a limited small-bowel resection. Did well for the 1st week postoperative and now has had stuttering symptoms with abdominal pain and some nausea for 7 days. He had a more severe episode this morning which prompted a visit to would be [facility]. There, CT scan was consistent with a possible bowel obstruction. He was discussed with our surgeon, and accepted in transfer. The patient does note that he has been having relatively normal bowel movements throughout the week although some have been loose. No abdominal distention has been reported. Surgery does recommended a Gastrografin challenge and this has been arranged. The patient was, and no apparent stress. Has no current abdominal pain or distention. Discharge Providers Provider Date of admission: 11/29/24 10:42 Discharge Date: 11/30/24 Primary care physician: MANUEL Alejandre Consults: 11/29/24 14:12 Consult to General Surgery Routine Comment: Consulting Provider: Jordon Waller Reason for consultation: GI bleeding Discharge provider: Aftab Hutson MD Summary Hospital Course Discharge Diagnosis: 1. Constipation. Resolved. Hospital Course: He was admitted for concern for possible recurrent bowel obstruction. He was status post recent surgery for Meckel's diverticulum with a small bowel resection. The patient had images and will be [facility] which were reviewed by our surgeon and felt to not be consistent with bowel obstruction. A Gastrografin challenge produced contrast to the rectum and bowel movements. A bowel prep program overnight produced more bowel movements and he felt much better on the day of discharge. Status at Discharge Cognitive/behavioral status at discharge: oriented Functional status at discharge: independent ambulation Overall status at discharge: patient is back to baseline Time Spent with Patient Time spent: Greater than 30 minutes Exam Vital Signs (past 8 hours): - 11/30/24 08:00 Temperature 97.8 F Pulse Rate 94 H Respiratory Rate 9 L Blood Pressure 129/91 H Pulse Oximetry 97 Oxygen Flow Rate 0 Oxygen Flow Rate 0 Narrative Exam Narrative: NAD, alert and oriented. Fluent speech. Lungs are clear, normal rate and effort. Heart is regular, no murmur gallop or rub. Abdomen is soft, non distended. Extremities are free of edema. Objective Imaging CT scan - abdomen: Radiologist's impression: Radiology called a bowel obstruction, our surgeon disagreed and felt that there was not evidence of obstruction. Labs 11/30/24 05:42 11/30/24 05:42 Labs: Laboratory Results - last 24 hr 11/29/24 11/29/24 11/30/24 16:22 16:42 05:42 WBC 6.3 6.1 RBC 5.21 4.91 Hgb 14.3 13.6 Hct 42.5 39.8 L MCV 81.6 81.0 MCH 27.4 27.7 MCHC 33.6 34.1 RDW 13.7 13.8 Plt Count 293 274 Neut % (Auto) 60.1 57.9 Lymph % (Auto) 30.9 31.8 [place] % (Auto) 7.3 8.2 Eos % (Auto) 1.3 L 1.7 L Baso % (Auto) 0.4 0.4 Neut # (Auto) 3800 3500 Lymph # (Auto) 1900 1900 [place] # (Auto) 500 500 Eos # (Auto) 100 100 Baso # (Auto) 0 0 Sodium 141 138 Potassium 4.0 3.8 Chloride 108 H 106 Carbon Dioxide 24 24 BUN 10 9 Creatinine 0.75 0.71 Estimated GFR > 60 > 60 BUN/Creatinine Ratio 13.3 12.7 Glucose 102 H 103 H Calcium 9.4 8.9 Total Bilirubin 0.8 AST 24 ALT 21 Alkaline Phosphatase 75 Total Protein 7.4 Albumin 4.4 Globulin 3.0 Albumin/Globulin Ratio 1.5 Stl C. cayetanensis PCR Not detected Stool Rotavirus (PCR) Not detected Stool Adenovirus (PCR) Not detected Stool Astrovirus (PCR) Not detected Stool Cryptosporidium PCR Not detected Stl E.coli Shiga Tox PCR Not detected St Sh/Enteroin Ecoli PCR Not detected Stl Enterotoxigenic E PCR Not detected Stool EPEC (PCR) Not detected Stl E. histolytica PCR Not detected Stool Giardia Lamblia PCR Not detected Stool Sapovirus (PCR) Not detected Stl P. shigelloides PCR Not detected St Y.enterocolitica PCR Not detected Stool Vibrio (PCR) Not detected Stl Vibrio cholerae PCR Not detected Stl Enteroaggr Ecoli PCR Not detected Stl Norovirus GI/GII PCR Not detected Campylobacter (PCR) Not detected C. difficile Tox (PCR) Not detected Salmonella (PCR) Not detected PFSH Medical History Small bowel obstruction Sinus tachycardia Meckel's diverticulum Hyperkalemia Surgical History Anesthesia Bowel obstruction (~10/03/24) Family History Grandfather History of heart disease Grandmother No problems noted. Social History household members: significant other and family Smoking Status: Never smoker alcohol intake: never Discharge Assessment & Plan Assessment and Plan Assessment: 1. Constipation. Plan of Treatment: Discharge home with MiraLax 1 time daily and close follow up. Discharge Plan Discharge Plan Patient Disposition: Home Provider Discharge Comment: Improved after bowel program, stable for discharge home. Discharge orders & Medications Prescriptions: Continued valacyclovir 1 gram tablet 2,000 mg PO BID PRN (Reason: cold sores) Rx Instructions: 2 g twice daily for 1 day; initiate therapy at earliest symptoms Follow up/Referrals: Kaya Sexton FNP-BC [Primary Care Provider, Family Practice] Diet/Activity/Treatments Diet: Diet as Tolerated Visit Report/Discharge Packet Instructions: DI for Constipation Stand Alone Forms: Patient Portal/API Discharge Data Primary Care Provider: Kaya Sexton Quality VTE Deep Vein Thrombosis/Pulmonary Embolism Present on Admission: No
--- NOTE | 2024-11-30 12:13 | CM.DANOTE ---
[facility] DCP Assessment Visit Note Reviewed EMR and team rounds for pt's medical status and updates. Met with pt at bedside to introduce self and role, pt was found to be alert, oriented, in good spirits and ready to d/c back home. Pt resides independently in his own home with his Significant Other. Pt has been medically cleared for home d/c, his SO will transport him home later this am. No CM d/c assistance needs are identified at this time. Payor: Niurka LAU PCP: Kaya Sexton Pt is a 19 year-old M who was transferred and directly admitted from another hospital for persistent abdominal pain, and nausea/vomiting for the past 7-days. He is post-op 57 days days since his surgical laparotomy and small bowel resection. He was started on a Gastrografin study last evening, and was found to not have a bowel blockage. His pain is now well controlled and stable. No further needs are indicated. Discharge Planning/Care Management Advanced directive, confirm from FAMILY Start: 11/29/24 11:30 Freq: Q24H Status: Discharge Protocol: Document 11/29/24 11:30 LW (Rec: 11/29/24 13:25 LW [id number]) Advance Directive, confirm on record Time 13:24 Person contacted patient Copy received No CM Discharge Assessment Start: 11/29/24 10:49 Freq: Status: Discharge Protocol: Document 11/30/24 10:49 DPL (Rec: 11/30/24 10:58 DPL [id number]) Discharge Planning Assessment Assigned Discharge SHRADDHA Marte [employer] Provider Esme Bah Advance Directives? No Advance Directives No on File History Provided By Patient,Medical Record Has Patient been No admitted in last 30 days? Prior Living House Arrangements Household Members significant other,family Type of Drives own vehicle transporation used prior to admit Independent with ADL Yes 's Is patient alert and Yes oriented? Comment N/A Caregiver for No Another Comment No identified home d/c needs at this time. Barriers to No Discharge Discharge Plan Home Transportation SO will transport at d/c. Arrangement Referrals Initiated None needed Whiteboard Updated Yes in Patient Room with name and ext. # of Business Analysis Specialist Review Status In Process Please Provide Date 11/30/24 Initial DC Assessment Was Performed
== END 2024-11-30 10:34 | disposition home or self-care (01) | DRG 392 ==
PROVIDERS: Admitting Provider Hospitalist; PCP Nurse Practitioner Family; Referring Provider Obstetrics & Gynecology; Visit Provider Hospitalist
DX: K59.00 Constipation, unspecified (principal); Z90.49 Acquired absence of other specified parts of digestive tract; Z87.19 Personal history of other diseases of the digestive system; Z83.2 Family history of diseases of the blood and blood-forming organs and certain disorders involving the immune mechanism
CPT/HCPCS: 36415; 74018; 80048; 80053; 85025; 87507